=== PATIENT | female | born 1945 | race African-American/Black ===

== ENCOUNTER 2021-08-30 05:40 | Inpatient (IN) | payer MEDICARE ==
[~2021-08-30] VITALS: Ht 157.5 cm; Wt 79.6 kg
[2021-08-30] MEDS ORDERED: FLUO20CA22 PO (06:17)
[2021-08-30] MEDS ORDERED: TRAZ-118 PO (06:17)
[2021-08-30] MEDS ORDERED: CRESTOR40 MG PO (06:17)
[2021-08-30] MEDS ORDERED: FERR142T13 PO (06:17)
[2021-08-30] MEDS ORDERED: ACYC-12 PO (06:17)
[2021-08-30] MEDS ORDERED: TORS20TA2 PO (06:17)
[2021-08-30] MEDS ORDERED: CARV25TA2 PO (06:17)
[2021-08-30] MEDS ORDERED: CLOP75TA PO (06:17)
[2021-08-30] MEDS ORDERED: CETI10TA74 PO (06:17)
[2021-08-30] MEDS ORDERED: CHOL100013 PO (06:17)
[2021-08-30] MEDS ORDERED: CYAN50009 PO (06:17)
[2021-08-30] MEDS ORDERED: DICY10CA3 PO (06:17)
[2021-08-30] MEDS ORDERED: HYDR-2869 PO (06:21)
[2021-08-30] MEDS ORDERED: ISOS30TA68 PO (06:21)
[2021-08-30] MEDS ORDERED: INSU100C4 SQ (06:57)
[2021-08-30] MEDS ORDERED: INSU100V13 SQ (06:57)
[2021-08-30 07:00] VITALS: BP 92/55
--- NOTE | 2021-08-30 07:18 | PDOC1 ---
History and Physical Date of Admission Date of Admission DATE: 08/30/21 TIME: 07:17 Identification/Chief Complaint Chief Complaint Syncope Source Source: Patient History of Present Illness History of Present Illness Ms Arreaga is a 76-year-old female with a past medical history of CAD s/p CABG, systolic CHF EF 25% s/p AICD implantation, CKDIV, uterine Ca in remission, DM2, CHINEUD on CPAP, and recent diagnosis of multiple myeloma in the last year on Velcade through [facility] who presents to the emergency department at [facility] in [place], [place] with a chief complaint of syncope. States that she was having a bowel movement when this happened and her daughter witnessed her lose consciousness, did not strike her head. Denies any recent travel, traumas, illnesses, fevers, chest pain, shortness of breath, abdominal pain, nausea, vomiting, dysuria, hematuria, blood in the stool or diarrhea. Denies any known ill contacts. Denies alcohol or drug use. She was seen in the ED on 08/29/2021 after an episode where she passed out in the kitchen and awoke on the floor next to her sink. She got up later in the day went to the restroom and passed on the toilet after urinating. She was seen in the ED and had negative CT head neck and was discharged home with self-care. No history of seizures no loss of bowel or bladder function. She does follow at [facility] in [facility] and sees Dr. Vivas for her congestive heart failure and takes carvedilol 25 mg twice daily Imdur 30 mg daily hydralazine 50 mg 3 times daily and torsemide 40 mg daily as well as metolazone. She has had no discharges of her AICD that she knows of She was diagnosed with multiple myeloma in the last year and has been on Velcade infusions. Additionally she was diagnosed with worsening CKD and referred to nephrology for presumptive CKD stage IV. WBC 8, Hb 9.2, platelets 164, NA 138, K3.5, CL 100, HCO3 30, BUN 94, CR 3.2, glucose 294, calcium 8.8, phosphorus 3.8, magnesium 1.8, bilirubin 0.5, AST 20, ALT 27, alkaline phosphatase 90, high-sensitivity troponin is 34, NT proBNP is 2191, albumin 3.3, rapid COVID-19 negative, urinalysis with small blood otherwise bland, INR 1.1, PTT 23, D-dimer 1.89. EKG sinus rate 89 bpm QTC 476 otherwise normal axis and intervals. Transferred to [facility] for further evaluation. Past Medical History Cardiovascular: CAD, CHF, HTN, Hyperlipidemia CENTRAL NERVOUS SYSTEM: TIA Heme/Onc: Other (Multiple myeloma) Renal/: Chronic renal insuff Endocrine: Diabetes Past Surgical History Past Surgical History: Pacemaker (AICD), CABG Family History Family History: Diabetes, Hypertension Social History Smoke: Quit ALCOHOL: none Drugs: None Current Medications Current Medications Active Scripts Active Reported Novolog (Insulin Aspart) 100 Unit/1 Ml Cartridge 100 Unit SQ TID Levemir (Insulin Detemir) 100 Unit/1 Ml Vial 25 Unit SQ HS Isosorbide Mononitrate Er (Isosorbide Mononitrate) 30 Mg Tab.er.24h 1 Tab PO DAILY Hydralazine Hcl 50 Mg Tablet 1 Tab PO TID Clopidogrel (Clopidogrel Bisulfate) 75 Mg Tablet 1 Tab PO DAILY Torsemide 20 Mg Tablet 2 Tab PO DAILY Dicyclomine Hcl 10 Mg Capsule 1 Cap PO DAILY Vitamin B12 (Cyanocobalamin (Vitamin B-12)) 5,000 Mcg Tab.rapdis 1,000 Mcg PO DAILY Trazodone Hcl 50 Mg Tablet 50 Mg PO HS Vitamin D3 (Cholecalciferol (Vitamin D3)) 25 Mcg Capsule 25 Mcg PO DAILY Zyrtec (Cetirizine Hcl) 10 Mg Tablet 1 Tab PO DAILY Slow Fe (Ferrous Sulfate) 142 Mg Tablet.er 65 Mg PO DAILY Crestor (Rosuvastatin Calcium) 40 Mg Tablet 0.5 Tab PO DAILY Carvedilol 25 Mg Tablet 25 Mg PO BIDWMEALS Acyclovir 400 Mg Tablet 1 Tab PO BID Fluoxetine Hcl 20 Mg Capsule 1 Cap PO DAILY Allergies Allergies: Coded Allergies: Sulfa (Sulfonamide Antibiotics) (Verified Allergy, Unknown, 08/30/21) ROS General: YES: Fatigue, Malaise; No: Chills, Night Sweats, Appetite, Other PSYCHOLOGICAL ROS: No: Anxiety, Behavioral Disorder, Concentration difficultie, Decreased libido, Depression, Disorientation, Hallucinations, Hostility, Irritablity, Memory difficulties, Mood Swings, Obsessive thoughts, Physical abuse, Sexual abuse, Sleep disturbances, Suicidal ideation, Other Eyes: No Blurry vision, No Decreased vision, No Double vision, No Dry eyes, No Excessive tearing, No Eye Pain, No Itchy Eyes, No Loss of vision, No Photophobia, No Scotomata, No Uses contacts, No Uses glasses, No Other HEENT: No: Heacaches, Visual Changes, Hearing change, Nasal congestion, Nasal discharge, Oral lesions, Sinus pain, Sore Throat, Epistaxis, Sneezing, Snoring, Tinnitus, Vertigo, Vocal changes, Other ALLERGY AND IMMUNOLOGY: No: Hives, Insect Bite Sensitivity, Itchy/Watery Eyes, Nasal Congestion, Post Nasal Drip, Seasonal Allergies, Other Hematological and Lymphatic: No: Bleeding Problems, Blood Clots, Blood Transfusions, Brusing, Night Sweats, Pallor, Swollen Lymph Nodes, Other ENDOCRINE: No: Breast Changes, Galactorrhea, Hair Pattern Changes, Hot Flashes, Malaise/lethargy, Mood Swings, Palpitations, Polydipsia/polyuria, Skin Changes, Temperature Intolerance, Unexpected Weight Changes, Other Breast: No New/Changing Breast Lumps, No Nipple changes, No Nipple discharge, No Other Respiratory: No: Cough, Hemoptysis, Orthopnea, Pleuritic Pain, Shortness of breath, SOB with excertion, Sputum Changes, Stridor, Tachypnea, Wheezing, Other Cardiovascular: No Chest Pain, No Palpitations, No Orthopnea, No Paroxysmal Noc. Dyspnea, No Edema, No Lt Headedness, No Other Gastrointestinal: No Nausea, No Vomiting, No Abdominal Pain, No Diarrhea, No Constipation, No Melena, No Hematochezia, No Other Genitourinary: No Dysuria, No Frequency, No Incontinence, No Hematuria, No Retention, No Discharge, No Urgency, No Pain, No Flank Pain, No Other, No , No , No , No , No , No , No Musculoskeletal: Yes Gait Disturbance; No Joint Pain, No Joint Stiffness, No Joint Swelling, No Muscle Pain, No Muscular Weakness, No Pain In:, No Swelling In:, No Other Neurological: No Behavorial Changes, No Bowel/Bladder ControlChng, No Confusion, No Dizziness, No Gait Disturbance, No Headaches, No Impaired Coord/balance, No Memory Loss, No Numbness/Tingling, No Seizures, No Speech Problems, No Tremors, No Visual Changes, No Weakness, No Other Skin: No Dry Skin, No Eczema, No Hair Changes, No Lumps, No Mole Changes, No Mottling, No Nail Changes, No Pruritus, No Rash, No Skin Lesion Changes, No Other, No Acne Physical Exam General: Alert, Oriented X3, Cooperative, mild distress HEENT: Atraumatic, PERRLA, EOMI, Mucous membr. moist/pink Lungs: Clear to auscultation, Normal air movement Heart: S1S2, RRR, no thrills, no rubs, no gallops, no murmurs Abdomen: Normal bowel sounds, Soft, No tenderness, No hepatosplenomegaly, No masses Rectal Exam: not examined Extremities: No clubbing, No cyanosis, No edema, Normal pulses, No tenderness/swelling Skin: No rashes, No breakdown, No significant lesion Neuro: Normal gait, Normal speech, Strength at 5/5 X4 ext, Normal tone, Sensation intact, Cranial nerves 3-12 NL, Reflexes 2+ Psych/Mental Status: Mental status NL, Mood NL Vitals Vitals Vital Signs Date Time Temp Pulse Resp B/P (MAP) Pulse Ox O2 Delivery O2 Flow Rate FiO2 08/30/21 05:00 Room Air Images Images 08/29/21: CT CHEST WO CONTRAST Thyroid gland and thoracic inlet: Thyroid gland is normal. Heart and great vessels: Heart is mildly enlarged. There are surgical changes of CABG. Ute coronary artery calcifications. There is a defibrillator terminating in the right ventricle. A right chest wall port tip terminates at the superior cavoatrial junction. The thoracic aorta is normal in caliber. There is mild calcified moderate calcified aortic atherosclerosis with probable narrowing of the proximal left subclavian artery. The main pulmonary artery is enlarged measuring 4.4 cm consistent with pulmonary arterial hypertension. Mediastinum and ori: No lymphadenopathy. There are small mediastinal lymph nodes, nonspecific. Small hiatal hernia. Lungs and pleura: There is a 1 cm nodular opacity in the lateral left lower lobe (image 66, series 2). There are a few additional scattered 2 to 3 mm pulmonary nodules. Mild airway wall thickening. No pleural effusion or pneumothorax. Chest wall and axillae: No axillary lymphadenopathy. Upper abdomen: There is a 2.1 cm benign fat-containing left adrenal nodule. Bilateral adrenal calcifications are likely sequela of remote adrenal hemorrhages. There is severe right renal atrophy. Bones: Mild superior endplate deformities of T2 and T3, likely old or degen erative. No definite acute fracture. IMPRESSION: 1. Cardiomegaly. Surgical changes of CABG. Moderate calcified atherosclerosis. 2. Enlarged main pulmonary artery consistent with pulmonary arterial hypertension. 3. 1 cm nodular opacity in the lateral left lower lobe. Recommend follow-up CT in 3 months to ensure resolution. 4. No acute fracture. Mild chronic appearing superior endplate deformities of T2 and T3. 5. Severe right renal atrophy. 08/29/21: CT HEAD AND CERVICAL SPINE WO CT HEAD AND C-SPINE WO History: Syncope. Fall posterior head and midline neck pain. Comparison: 05/14/2021 Technique: Noncontrast CT of the head and cervical spine. Findings: CT HEAD: There is no evidence for intracranial mass or hemorrhage. There is no hydrocephalus or midline shift. No abnormal extra-axial fluid collections are present. No evidence of acute territorial infarction. Mild volume loss. Minimal left greater than right maxillary sinus nuchal periosteal thickening. The skull and scalp are within normal limits. CT CERVICAL SPINE: There is no evidence for fracture in the cervical spine. Alignment is normal. Mild cervical spondylosis. No destructive osseous lesions are seen. Carotid and vertebral artery atherosclerotic calcifications. Limited evaluation of the soft tissues of the neck and of the upper chest is unremarkable. Impression: 1. No acute intracranial findings. 2. No acute osseous abnormality in the cervical spine. VTE Prophylaxis Ordered VTE Prophylaxis Devices: Yes VTE Pharmacological Prophylaxi: Yes Assessment/Plan Assessment/Plan Syncope - multifactorial. Likely vasovagal. Will check device, consult cardiology. Carotid dopplers, check VQ scan. Orthostatics CAD s/p CABG - cont plavix Chronic systolic CHF EF 25% s/p AICD implantation - will monitor BP, cont meds CKD IV - will order records to confirm where her renal function is. Nephrology consulted. will give gently fluids for likely orthostasis Uterine Ca in remission DM2 - sliding scale basal bolus CHINEDU on CPAP - can bring in home device Multiple myeloma in the last year on Velcade through [facility] Severe pulmonary HTN - likely multifactorial, CHF, possibly primary pulmonary and possibly related to MM, noted per previous echo. Will avoid overdiuresis Anemia - likely of chronic renal insufficiency FEN - Cardiac diet PPX - heparin FULL CODE Dispo - inpatient Justifications for Admission Other Justification GUDELIA EMERSON MD Aug 30, 2021 07:18
[2021-08-30] MEDS ORDERED: traMADol 50 MG TABLET PO PRN (07:30)
[2021-08-30] MEDS ORDERED: ACETAMINOPHEN 325 MG TABLET. PO PRN (07:30)
[2021-08-30] MEDS ORDERED: ONDANSETRON PF 4 MG/2 ML VIAL. IVP PRN (07:30)
--- NOTE | 2021-08-30 08:15 | RAD ---
BILATERAL DUPLEX CAROTID SONOGRAPHY History: Syncope, concern for carotid occlusive vs vertebrobasilar insuffiency Technique: Duplex sonography of the cervical portion of both carotid arteries was performed. Real-sabrina e grayscale, color flow Doppler, and Doppler spectral waveform analysis is performed. Findings: Right side: Peak systolic flow velocity of the CCA is 76 cm/sec. Peak systolic flow velocity of the ICA is 70 cm/sec. The ICA/CCA ratio is 0.92. Peak end diastolic flow velocity of the ICA is 16 cm/sec. The peak systolic velocity of the ECA is 156 cm/sec. There is heterogeneous plaque in the common carotid artery. Left side: Peak systolic flow velocity of the CCA is 87 cm/sec. Peak systolic flow velocity of the ICA is 119 cm/sec. The ICA/CCA ratio is 1.2. Peak end diastolic flow velocity of the ICA is 43 cm/sec. Peak systolic flow velocity of the ECA is 104 cm/sec. There is heterogeneous plaque in the common carotid artery. Vertebral arteries: Bilateral vertebral arteries demonstrate antegrade flow. IMPRESSION: No hemodynamically significant internal carotid artery stenosis is identified. PQRS Compliance Statement - Stenosis calculations for CT, MR and conventional angiography are based u dwight measurement of the distal ICA diameter in accordance with the NASCET methodology. Stenosis calcu lations for carotid ultrasound studies are derived from validated velocity criteria which are known t o correlate with the NASCET methodology. Electronically signed by: Louis Messer MD (08/30/2021 8:12 AM) [facility]
[2021-08-30] MEDS: FLUoxetine HCL 20 MG CAPSULE PO SCH (09:01)
[2021-08-30] MEDS: DOCUSATE SODIUM 100 MG CAPSULE. PO SCH ×2 (09:01→20:39)
[2021-08-30] MEDS: CYANOCOBALAMIN (VITAMIN B-12) 1,000 MCG TABLET. PO SCH (09:01)
[2021-08-30] MEDS: CLOPIDOGREL BISULFATE 75 MG TABLET PO SCH (09:01)
[2021-08-30] MEDS: CETIRIZINE HCL 10 MG TABLET. PO SCH (09:01)
[2021-08-30] MEDS: CHOLECALCIFEROL (VITAMIN D3) 1,000 UNIT TABLET PO SCH (09:01)
[2021-08-30 09:08] LABS: ALBUMIN/GLOBULIN RATIO 0.9 (1.0-1.7); CALCIUM 8.7 mg/dL (8.5-10.1); CREATININE 2.9 mg/dL (0.6-1.0); GFR 19.2; POTASSIUM 3.9 mmol/L (3.5-5.1); TOTAL BILIRUBIN 0.4 mg/dL (0.2-1.0); TOTAL PROTEIN 6.3 g/dL (6.4-8.2)
[2021-08-30] MEDS: HEPARIN for SUB-Q USE 5,000 UNIT/ML VIAL. SQ SCH ×3 (09:11→22:05)
[2021-08-30 11:00] VITALS: BP 91/54
[2021-08-30] MEDS ORDERED: IV DEXTROSE 5% 250 ML BAG. IV PRN (11:45)
[2021-08-30] MEDS ORDERED: DEXTROSE 50% 25 GM / 50ML DISP.SYRIN. IV PRN (11:45)
--- NOTE | 2021-08-30 11:54 | PDOC2 ---
CONSULT Date of Consult Date of Consult DATE: 08/30/21 TIME: 11:51 Reason for Consult Reason for Consult: MAYELA Identification/Chief Complaint Chief Complaint States feeling better Source Source: Chart review, Patient History of Present Illness Reason for Visit: patient is a 76 yo AAF presented to [facility] with c/o Syncope - she had 3 episodes . Went to [facility] ER earlier was sent home . She went back again and transferred to [facility]. Denies any CP , No SOB. Denies any Cough/Fever or Chills. Denies any Dysuria /Frequency or Urgency Reports Hx of UTI in the past , none recently . She has a Dx of MM - reports getting Chemo thru [facility] . She was recently seen by Nephrology at [facility] (Doent recall name) - states she was Dx with CKD stage 3 or 4 not sure and her Cr had gone up to 4. She states she was told that she is not close to dialysis yet . Records from [facility] are pending Currently denies any complaints, sitting up in bed eating Lunch. Denies any dizziness or Light headedness. Denies LE edema . Per her Home med list she is on Torsemide and PREMA-I .(another list shows metolzone) Past Medical History Past Medical History HTN, Multiple Myeloma, DM HyperLipidemia CAD, CHF,, Cardiomyopathy, carotid artery disease COPD (CHINEDU) CVA, TIA Anemia Renal/: Chronic renal insuff Endocrine: Diabetes Past Surgical History Past Surgical History AICD (right carotid endarterectomy, CABG Family History Family History Hypertension Social History Social History Smoke: Quit ALCOHOL: none Drugs: None Lives: with Family Current Medications Current Medications Current Medications Acetaminophen (Tylenol) 650 mg PRN Q6HRS PRN PO MILD PAIN / TEMP > 100.3'F; Start 08/30/21 at 07:30 Ondansetron HCl (Zofran) 4 mg PRN Q4HRS PRN IVP NAUSEA/VOMITING; Start 08/30/21 at 07:30 Tramadol HCl (Ultram) 50 mg PRN Q6HRS PRN PO MODERATE-SEVERE PAIN; Start 08/30/21 at 07:30 Psyllium Hydrophilic Mucilloid (Metamucil Fiber Packet) 1 pkt QHS PO ; Start 08/30/21 at 21:00 Heparin Sodium (Porcine) (Heparin Sodium) 5,000 unit Q8HRS SQ Last administered on 08/30/21at 09:11; Start 08/30/21 at 07:30 Cetirizine HCl (ZyrTEC) 10 mg DAILY PO Last administered on 08/30/21at 09:01; Start 08/30/21 at 09:00 Clopidogrel Bisulfate (Plavix) 75 mg DAILY PO Last administered on 08/30/21at 09:01; Start 08/30/21 at 09:00 Fluoxetine HCl (PROzac) 20 mg DAILY PO Last administered on 08/30/21at 09:01; Start 08/30/21 at 09:00 Hydralazine HCl (Apresoline) 50 mg TID PO ; Start 08/30/21 at 09:00 Isosorbide Mononitrate (Imdur) 30 mg DAILY PO ; Start 08/30/21 at 09:00 Trazodone HCl (Desyrel) 50 mg HS PO ; Start 08/30/21 at 21:00 Carvedilol (Coreg) 25 mg BIDWMEALS PO ; Start 08/30/21 at 08:00 Vitamin D (Vitamin D3) 1,000 unit DAILY PO Last administered on 08/30/21at 09:01; Start 08/30/21 at 09:00 Cyanocobalamin (Vitamin B-12) 1,000 mcg DAILY PO Last administered on 08/30/21at 09:01; Start 08/30/21 at 09:00 Atorvastatin Calcium (Lipitor) 80 mg QHS PO ; Start 08/30/21 at 21:00 Docusate Sodium (Colace) 100 mg BID PO Last administered on 08/30/21at 09:01; Start 08/30/21 at 09:00 Insulin Human Lispro (HumaLOG) 0-9 UNITS TIDWMEALS SQ ; Start 08/30/21 at 12:00 Dextrose (Dextrose 50%-Water Syringe) 12.5 gm PRN Q15MIN PRN IV SEE COMMENTS; Start 08/30/21 at 11:45 Dextrose (Iv Dextrose 5%) 250 ml PRN Q15MIN PRN IV SEE COMMENTS; Start 08/30/21 at 11:45 Active Scripts Active Reported Novolog (Insulin Aspart) 100 Unit/1 Ml Cartridge 100 Unit SQ TID Levemir (Insulin Detemir) 100 Unit/1 Ml Vial 25 Unit SQ HS Isosorbide Mononitrate Er (Isosorbide Mononitrate) 30 Mg Tab.er.24h 1 Tab PO DAILY Hydralazine Hcl 50 Mg Tablet 1 Tab PO TID Clopidogrel (Clopidogrel Bisulfate) 75 Mg Tablet 1 Tab PO DAILY Torsemide 20 Mg Tablet 2 Tab PO DAILY Dicyclomine Hcl 10 Mg Capsule 1 Cap PO DAILY Vitamin B12 (Cyanocobalamin (Vitamin B-12)) 5,000 Mcg Tab.rapdis 1,000 Mcg PO DAILY Trazodone Hcl 50 Mg Tablet 50 Mg PO HS Vitamin D3 (Cholecalciferol (Vitamin D3)) 25 Mcg Capsule 25 Mcg PO DAILY Zyrtec (Cetirizine Hcl) 10 Mg Tablet 1 Tab PO DAILY Slow Fe (Ferrous Sulfate) 142 Mg Tablet.er 65 Mg PO DAILY Crestor (Rosuvastatin Calcium) 40 Mg Tablet 0.5 Tab PO DAILY Carvedilol 25 Mg Tablet 25 Mg PO BIDWMEALS Acyclovir 400 Mg Tablet 1 Tab PO BID Fluoxetine Hcl 20 Mg Capsule 1 Cap PO DAILY Allergies Allergies: Coded Allergies: Sulfa (Sulfonamide Antibiotics) (Verified Allergy, Unknown, 08/30/21) ROS Review of System As per HPI, rest of the ROS is negative Physical Exam Physical Exam General NAD HEEN OM moist Neck Supple Lungs CTA, Non labored CV S1S2 Abd soFT, nt, bs + Ext No LE edema, No Cyanosis Neuro Grossly Normal Psych Coopertaive No Young , No CVA or SP tenderness Vital Signs Vital Signs Date Time Temp Pulse Resp B/P (MAP) Pulse Ox O2 Delivery O2 Flow Rate FiO2 08/30/21 08:00 Room Air 08/30/21 07:00 98.3 64 18 92/55 (67) 93 98.3 Assessment & Plan MAYELA - baseline unknown; per patient report CKD 3 or 4. Patient reports Creat was up to 4 . MAYELA 2/2 Dehydration/Vasomotor; getting diuretics, Hypotensive . UA unremarkable, Creat stable 3.1->2.9 Hold Diuretics and PREMA-I , Maintain Hydration , Avoid Nephrotoxins , strict I/O . daily standing weight CKD stage 3 B/4- awaiting records from [facility]. Pt reports started seeing [employer] [facility] recently Hypotension BP low. Hx of HTN . Recommned holding antihypertensives Hx of HTN Home meds Coreg, Hydralazine, Torsemide ,Recommned Hold DM - Primary managing Multiple Myeloma - On Chemotherapy per patient Labs Labs Laboratory Tests Test 08/30/21 07:57 08/30/21 08:25 Glucose (Fingerstick) 153 mg/dL (70-99) Sodium Level 143 mmol/L (136-145) Potassium Level 3.9 mmol/L (3.5-5.1) Chloride Level 102 mmol/L (98-107) Carbon Dioxide Level 31 mmol/L (21-32) Anion Gap 10 (6-14) Blood Urea Nitrogen 87 mg/dL (7-20) Creatinine 2.9 mg/dL (0.6-1.0) Estimated GFR (Cockcroft-Gault) 19.2 BUN/Creatinine Ratio 30 (6-20) Glucose Level 142 mg/dL (70-99) Calcium Level 8.7 mg/dL (8.5-10.1) Total Bilirubin 0.4 mg/dL (0.2-1.0) Aspartate Amino Transf (AST/SGOT) 18 U/L (15-37) Alanine Aminotransferase (ALT/SGPT) 27 U/L (14-59) Alkaline Phosphatase 90 U/L (46-116) Total Protein 6.3 g/dL (6.4-8.2) Albumin 3.0 g/dL (3.4-5.0) Albumin/Globulin Ratio 0.9 (1.0-1.7) Thyroid Stimulating Hormone (TSH) 0.633 uIU/mL (0.358-3.74) Laboratory Tests Test 08/30/21 07:57 08/30/21 08:25 Glucose (Fingerstick) 153 mg/dL (70-99) Sodium Level 143 mmol/L (136-145) Potassium Level 3.9 mmol/L (3.5-5.1) Chloride Level 102 mmol/L (98-107) Carbon Dioxide Level 31 mmol/L (21-32) Anion Gap 10 (6-14) Blood Urea Nitrogen 87 mg/dL (7-20) Creatinine 2.9 mg/dL (0.6-1.0) Estimated GFR (Cockcroft-Gault) 19.2 BUN/Creatinine Ratio 30 (6-20) Glucose Level 142 mg/dL (70-99) Calcium Level 8.7 mg/dL (8.5-10.1) Total Bilirubin 0.4 mg/dL (0.2-1.0) Aspartate Amino Transf (AST/SGOT) 18 U/L (15-37) Alanine Aminotransferase (ALT/SGPT) 27 U/L (14-59) Alkaline Phosphatase 90 U/L (46-116) Total Protein 6.3 g/dL (6.4-8.2) Albumin 3.0 g/dL (3.4-5.0) Albumin/Globulin Ratio 0.9 (1.0-1.7) Thyroid Stimulating Hormone (TSH) 0.633 uIU/mL (0.358-3.74) Review All relevant outside records, renal labs, imaging studies, telemetry/EKG's were reviewed. Images Images BILATERAL DUPLEX CAROTID SONOGRAPHY History: Syncope, concern for carotid occlusive vs vertebrobasilar insuffiency Technique: Duplex sonography of the cervical portion of both carotid arteries was performed. Real-time grayscale, color flow Doppler, and Doppler spectral waveform analysis is performed. Findings: Right side: Peak systolic flow velocity of the CCA is 76 cm/sec. Peak systolic flow velocity of the ICA is 70 cm/sec. The ICA/CCA ratio is 0.92. Peak end diastolic flow velocity of the ICA is 16 cm/sec. The peak systolic velocity of the ECA is 156 cm/sec. There is heterogeneous plaque in the common carotid artery. Left side: Peak systolic flow velocity of the CCA is 87 cm/sec. Peak systolic flow velocity of the ICA is 119 cm/sec. The ICA/CCA ratio is 1.2. Peak end diastolic flow velocity of the ICA is 43 cm/sec. Peak systolic flow velocity of the ECA is 104 cm/sec. There is heterogeneous plaque in the common carotid artery. Vertebral arteries: Bilateral vertebral arteries demonstrate antegrade flow. IMPRESSION: No hemodynamically significant internal carotid artery stenosis is identified. JOVANA WHITE MD Aug 30, 2021 11:54
[2021-08-30] MEDS: CARVEDILOL 12.5 MG TABLET. PO SCH ×2 (12:24→17:26)
[2021-08-30] MEDS: ISOSORBIDE MONONITRATE ER 30 MG TAB.ER.24H PO SCH (12:25)
[2021-08-30] MEDS: INSULIN LISPRO 300 UNITS/3 ML VIAL. SQ SCH ×2 (12:28→17:00)
--- NOTE | 2021-08-30 13:07 | PDOC2 ---
GRIFFIN VIDES [employer] 08/30/21 1307: CARDIAC CONSULT DATE OF CONSULT Date of Consult DATE: 08/30/21 TIME: 12:53 REASON FOR CONSULT Reason for Consult: syncope REFERRING PHYSICIAN Referring Physician: Dallin SOURCE Source: Chart review, Patient HISTORY OF PRESENT ILLNESS HISTORY OF PRESENT ILLNESS This is a pleasant 76 yo female admitted for complains of passing out. 3 x in the approximately 24 hours. First one while she was standing in the kitchen in front of the sink ,She turned around then the next thing was she was on the floor and urinated on herself. No symptoms of dizziness, palpoitations, chest p ain or SOA. No visual or auditory disturbances. The other following times she passed out was when she was trying to urinate while sitting on the toilet. Denies being very confused when she regained consciousness. Unclear duration of unconsciousness. No fever or chills, nor recent injuries or MVA. She drinks and eat [id number] as she described and takes her medications regularly. [place] follows with [facility] Vivas cardiology. Also she did not feel any sensation of defibrillation. PAST MEDICAL HISTORY Past Medical History Cardiovascular: CAD, CHF, HTN, hyperipidemia, Cardiomyopathy, carotid artery disease Pulmonary: COPD, Other (CHINEDU) CENTRAL NERVOUS SYSTEM: CVA, TIA Heme/Onc: Anemia NOS, MM Renal/: Chronic renal insuff Endocrine: Diabetes PAST SURGICAL HISTORY Past Surgical History AICD (right carotid endarterectomy, CABG FAMILY HISTORY Family History: Hypertension SOCIAL HISTORY Smoke: Quit ALCOHOL: none Drugs: None Lives: with Family CURRENT MEDICATIONS CURRENT MEDICATIONS Current Medications Medications (Trade) Dose Ordered Sig/Adin Route PRN Reason Start Time Stop Time Status Last Admin Dose Admin Heparin Sodium (Porcine) (Heparin Sodium) 5,000 unit Q8HRS SQ 08/30/21 07:30 08/30/21 09:11 Cetirizine HCl (ZyrTEC) 10 mg DAILY PO 08/30/21 09:00 08/30/21 09:01 Clopidogrel Bisulfate (Plavix) 75 mg DAILY PO 08/30/21 09:00 08/30/21 09:01 Fluoxetine HCl (PROzac) 20 mg DAILY PO 08/30/21 09:00 08/30/21 09:01 Vitamin D (Vitamin D3) 1,000 unit DAILY PO 08/30/21 09:00 08/30/21 09:01 Cyanocobalamin (Vitamin B-12) 1,000 mcg DAILY PO 08/30/21 09:00 08/30/21 09:01 Docusate Sodium (Colace) 100 mg BID PO 08/30/21 09:00 08/30/21 09:01 Insulin Human Lispro (HumaLOG) 0-9 UNITS TIDWMEALS SQ 08/30/21 12:00 08/30/21 12:28 ALLERGIES ALLERGIES: Coded Allergies: Sulfa (Sulfonamide Antibiotics) (Verified Allergy, Unknown, 08/30/21) ROS Review of System 14 point ROS evaluated with pertinent positives noted per HPI PHYSICAL EXAM General: Alert, Oriented X3, Cooperative, No acute distress HEENT: Atraumatic, Mucous membr. moist/pink Lungs: Clear to auscultation, Normal air movement Heart: Regular rate, Normal S1, Normal S2, Other (3/6 systolic murmur to LADARIUS border) Abdomen: Soft, No tenderness Extremities: No edema Skin: No breakdown, No significant lesion Neuro: Normal speech, Sensation intact Psych/Mental Status: Mental status NL, Mood NL MUSCULOSKELETAL: Osteoarthritic changes both hands VITALS/I&O VITALS/I&O: Vital Signs Date Time Temp Pulse Resp B/P (MAP) Pulse Ox O2 Delivery O2 Flow Rate FiO2 08/30/21 12:25 80 91/54 08/30/21 11:00 97.4 18 96 Room Air 97.4 LABS Lab: Laboratory Tests Test 08/30/21 07:57 08/30/21 08:25 08/30/21 12:01 Glucose (Fingerstick) 153 mg/dL (70-99) H 287 mg/dL (70-99) H Sodium Level 143 mmol/L (136-145) Potassium Level 3.9 mmol/L (3.5-5.1) Chloride Level 102 mmol/L (98-107) Carbon Dioxide Level 31 mmol/L (21-32) Anion Gap 10 (6-14) Blood Urea Nitrogen 87 mg/dL (7-20) H Creatinine 2.9 mg/dL (0.6-1.0) H Estimated GFR (Cockcroft-Gault) 19.2 BUN/Creatinine Ratio 30 (6-20) H Glucose Level 142 mg/dL (70-99) H Calcium Level 8.7 mg/dL (8.5-10.1) Total Bilirubin 0.4 mg/dL (0.2-1.0) Aspartate Amino Transferase (AST) 18 U/L (15-37) Alanine Aminotransferase (ALT) 27 U/L (14-59) Alkaline Phosphatase 90 U/L (46-116) Total Protein 6.3 g/dL (6.4-8.2) L Albumin 3.0 g/dL (3.4-5.0) L Albumin/Globulin Ratio 0.9 (1.0-1.7) L Thyroid Stimulating Hormone (TSH) 0.633 uIU/mL (0.358-3.74) Laboratory Tests 08/30/21 08:25 ECHOCARDIOGRAM ECHOCARDIOGRAM <Conclusion> The left ventricular systolic function is severely impaired. The ejection fraction is estimated at 25%. Tissue Doppler imaging reveals moderate left ventricular diastolic dysfunction. Pacer/ICD lead noted RA/RV. Mild to moderate mitral regurgitation. Mild to moderate tricuspid regurgitation with an estimated PAP of 77 mmHg. There is no evidence of significant pericardial effusion. DATE: 05/14/21 152 ASSESSMENT/PLAN ASSESSMENT/PLAN 1. Syncope; confirmed orthostasis. No arrhythmia so far 2. Chronic systolic CHF: compensated 3. CAD s/p remote CABG; follows with pantograph engraver, Dr. Vivas with [facility], clincally stable 4. Hypertension; low end 5. Hyperlipidemia; statin 6. Diabetes, II 7. CKD5? nephrology consulted 8. Anemia 9. H/o CVA 10. Hx of Multiple myeloma 11. Cardiomyopathy: recent EF at 25% 12. Severe pulmonary HTN 13. AICD in situ: unknown brand Recommendations Hpld BP meds and diuretics. She is compensated. Will start on midodrine. Cautyion with IVF. Interrogate device, to ascertain any contributing arrhythmia. Request old records from [facility] secondary prevention Supportive care TOYIN PALACIOS MD 08/31/21 1229: CARDIAC CONSULT ASSESSMENT/PLAN ASSESSMENT/PLAN Late entry for 08/30/21 Pt. seen and examined. Agree with above RN [facility] note. Spoke to her OSH pantograph engraver. Will cut coreg and hydral. Await ICD interrogation Discussed with GRIFFIN Molina APRN Aug 30, 2021 13:07 TOYIN PALACIOS MD Aug 31, 2021 12:29
[2021-08-30 15:00] VITALS: BP 97/56
[2021-08-30] MEDS: MIDODRINE 2.5 MG TABLET PO SCH ×2 (15:04→20:00)
--- NOTE | 2021-08-30 16:39 | NUR ---
SW following. Discussed with RN, pt from home, room air, cardiac diet. Cardiology and Nephrology following. PT/OT ordered. Pt had Chemo last . SW will continue to follow.
[2021-08-30 19:22] VITALS: BP 93/55
[2021-08-30] MEDS: PSYLLIUM HUSK (SUGAR FREE) 1 PKT PACKET PO SCH (20:39)
[2021-08-30] MEDS: traZODone 50 MG TABLET. PO SCH (20:39)
[2021-08-30] MEDS: ATORVASTATIN CALCIUM 40 MG TABLET. PO SCH (20:39)
[2021-08-30 23:32] VITALS: BP 118/55
[2021-08-31] VITALS (9 sets, daily range): BP systolic 74–109; BP diastolic 46–61
[2021-08-31] MEDS: HEPARIN for SUB-Q USE 5,000 UNIT/ML VIAL. SQ SCH ×3 (06:19→20:55)
[2021-08-31] MEDS: MIDODRINE 2.5 MG TABLET PO SCH (06:20)
[2021-08-31] MEDS: INSULIN LISPRO 300 UNITS/3 ML VIAL. SQ SCH ×3 (08:00→17:00)
[2021-08-31] MEDS: CARVEDILOL 12.5 MG TABLET. PO SCH ×2 (08:00→18:15)
[2021-08-31] MEDS: FLUoxetine HCL 20 MG CAPSULE PO SCH (08:55)
[2021-08-31] MEDS: DOCUSATE SODIUM 100 MG CAPSULE. PO SCH ×2 (08:55→20:58)
[2021-08-31] MEDS: ISOSORBIDE MONONITRATE ER 30 MG TAB.ER.24H PO SCH (08:55)
[2021-08-31] MEDS: CETIRIZINE HCL 10 MG TABLET. PO SCH (08:56)
[2021-08-31] MEDS: CYANOCOBALAMIN (VITAMIN B-12) 1,000 MCG TABLET. PO SCH (08:56)
[2021-08-31] MEDS: CLOPIDOGREL BISULFATE 75 MG TABLET PO SCH (08:56)
[2021-08-31] MEDS: CHOLECALCIFEROL (VITAMIN D3) 1,000 UNIT TABLET PO SCH (09:03)
[2021-08-31 09:05] LABS: ALBUMIN 2.9 g/dL (3.4-5.0); CALCIUM 8.5 mg/dL (8.5-10.1); CREATININE 2.7 mg/dL (0.6-1.0); GFR 20.8; PHOSPHORUS 3.2 mg/dL (2.6-4.7); POTASSIUM 3.8 mmol/L (3.5-5.1)
--- NOTE | 2021-08-31 11:00 | PDOC ---
[employer] PROGRESS NOTE Date of Service DOS: DATE: 08/31/21 TIME: 10:57 Chief Complaint Chief Complaint Syncope - multifactorial. Likely vasovagal. Will check device, consult cardiology. Carotid dopplers negative, check VQ scan. Orthostatics positive, started on midodrine CAD s/p CABG - cont plavix Chronic systolic CHF EF 25% s/p AICD implantation - will monitor BP, cont meds CKD IV - will order records to confirm where her renal function is. Nephrology consulted. will give gently fluids for likely orthostasis Uterine Ca in remission DM2 - sliding scale basal bolus CHINEDU on CPAP - can bring in home device Multiple myeloma in the last year on Velcade through [employer] Severe pulmonary HTN - likely multifactorial, CHF, possibly primary pulmonary and possibly related to MM, noted per previous echo. Will avoid overdiuresis Anemia - likely of chronic renal insufficiency FEN - Cardiac diet PPX - heparin FULL CODE Dispo - inpatient History of Present Illness History of Present Illness Ms Arreaga is a 76-year-old female with a past medical history of CAD s/p CABG, systolic CHF EF 25% s/p AICD implantation, CKDIV, uterine Ca in remission, DM2, CHINEDU on CPAP, and recent diagnosis of multiple myeloma in the last year on Velcade through [facility] who presents to the emergency department at [facility] in [place], [place] with a chief complaint of syncope. States that she was having a bowel movement when this happened and her daughter witnessed her lose consciousness, did not strike her head. Denies any recent travel, traumas, illnesses, fevers, chest pain, shortness of breath, abdominal pain, nausea, vomiting, dysuria, hematuria, blood in the stool or diarrhea. Denies any known ill contacts. Denies alcohol or drug use. She was seen in the ED on 08/29/2021 after an episode where she passed out in the kitchen and awoke on the floor next to her sink. She got up later in the day went to the restroom and passed on the toilet after urinating. She was seen in the ED and had negative CT head neck and was discharged home with self-care. No history of seizures no loss of bowel or bladder function. She does follow at [facility] in [facility] and sees Dr. Vivas for her congestive heart failure and takes carvedilol 25 mg twice daily Imdur 30 mg daily hydralazine 50 mg 3 times daily and torsemide 40 mg daily as well as metolazone. She has had no discharges of her AICD that she knows of She was diagnosed with multiple myeloma in the last year and has been on Velcade infusions. Additionally she was diagnosed with worsening CKD and referred to nephrology for presumptive CKD stage IV. WBC 8, Hb 9.2, platelets 164, NA 138, K3.5, CL 100, HCO3 30, BUN 94, CR 3.2, glucose 294, calcium 8.8, phosphorus 3.8, magnesium 1.8, bilirubin 0.5, AST 20, ALT 27, alkaline phosphatase 90, high-sensitivity troponin is 34, NT proBNP is 2191, albumin 3.3, rapid COVID-19 negative, urinalysis with small blood otherwise bland, INR 1.1, PTT 23, D-dimer 1.89. EKG sinus rate 89 bpm QTC 476 otherwise normal axis and intervals. Transferred to [facility] for further evaluation. 08/31: Positive orthostatics initially. Started on midodrine. CR 2.7, BUN 82. She feels better but has been up out of bed yet today. Awaiting [place] [facility] device interrogation to rule out VT as cause. Negative carotid Dopplers. Vitals/I&O Vitals/I&O: Vital Signs Date Time Temp Pulse Resp B/P (MAP) Pulse Ox O2 Delivery O2 Flow Rate FiO2 08/31/21 10:53 98.6 95 18 91/46 (61) 93 Room Air 98.6 I & O 08/30/21 08/30/21 08/31/21 15:00 23:00 07:00 Intake Total 240 ml 200 ml Balance 240 ml 200 ml Physical Exam General: Alert, Oriented X3, Cooperative, mild distress Heart: Regular rate, Normal S1, Normal S2, Other (3/6 systolic murmur to LADARIUS border) Abdomen: Normal bowel sounds, Soft, No tenderness, No hepatosplenomegaly, No masses Extremities: No clubbing, No cyanosis, No edema, Normal pulses, No tenderness/swelling Skin: No rashes, No breakdown, No significant lesion Labs Labs: Laboratory Tests Test 08/30/21 12:01 08/30/21 17:11 08/30/21 19:39 08/31/21 07:31 Glucose (Fingerstick) 287 mg/dL (70-99) 123 mg/dL (70-99) 197 mg/dL (70-99) 146 mg/dL (70-99) Test 08/31/21 08:20 Sodium Level 145 mmol/L (136-145) Potassium Level 3.8 mmol/L (3.5-5.1) Chloride Level 104 mmol/L (98-107) Carbon Dioxide Level 32 mmol/L (21-32) Anion Gap 9 (6-14) Blood Urea Nitrogen 82 mg/dL (7-20) Creatinine 2.7 mg/dL (0.6-1.0) Estimated GFR (Cockcroft-Gault) 20.8 Glucose Level 143 mg/dL (70-99) Calcium Level 8.5 mg/dL (8.5-10.1) Phosphorus Level 3.2 mg/dL (2.6-4.7) Albumin 2.9 g/dL (3.4-5.0) Comment Review of Relevant I have reviewed the following items jaylan (where applicable) has been applied. Medications: Current Medications Medications (Trade) Dose Ordered Sig/Adin Route PRN Reason Start Time Stop Time Status Last Admin Dose Admin Psyllium Hydrophilic Mucilloid (Metamucil Fiber Packet) 1 pkt QHS PO 08/30/21 21:00 08/30/21 20:39 Trazodone HCl (Desyrel) 50 mg HS PO 08/30/21 21:00 08/30/21 20:39 Atorvastatin Calcium (Lipitor) 80 mg QHS PO 08/30/21 21:00 08/30/21 20:39 Insulin Human Lispro (HumaLOG) 0-9 UNITS TIDWMEALS SQ 08/30/21 12:00 08/30/21 12:28 Midodrine (Proamatine) 2.5 mg BID76 PO 08/30/21 14:00 08/30/21 15:04 Justifications for Admission Syncope Indications Is patient dehydrated?: Yes Justification for admission: There is concern that patient may be severely dehydrated accounting for the syncope. Patient needs inpatient level of care for further evaluation and management. Other Justification GUDELIA EMERSON MD Aug 31, 2021 11:00
[2021-08-31] MEDS: hydrALAZINE 25 MG TABLET PO SCH ×2 (14:00→20:57)
--- NOTE | 2021-08-31 14:20 | PDOC ---
PROGRESS NOTES Date of Service DATE: 08/31/21 TIME: 14:18 Subjective Subjective IN FOLLOW UP OF CKD 4 IN SETTING OF MULTIPLE MYELOMA Objective Objective Vital Signs Date Time Temp Pulse Resp B/P (MAP) Pulse Ox O2 Delivery O2 Flow Rate FiO2 08/31/21 11:09 84 90/51 (64) 08/31/21 10:53 98.6 18 93 Room Air 98.6 Intake and Output 08/31/21 07:00 Intake Total 440 ml Balance 440 ml Intake Oral 440 ml # Voids 5 # Bowel Movements 1 Physical Exam Heart: Regular rate, Normal S1, Normal S2, No murmurs, Gallops Extremities: No clubbing, No cyanosis, No edema, Normal pulses, No tenderness/swelling General: Alert, Oriented X3, Cooperative, No acute distress Lungs: Clear to auscultation, Normal air movement Psych/Mental Status: Mental status NL, Mood NL Diagnosis RENAL FAILURE: Chronic (CKD stage IV) Plan Plan of Care HER RENAL FUNCTION IS IMPROVING. LIKELY CKD4 AT BASELINE. CONT TO TREND LAB. CO NT FLUID BALANCE Comment Review of Relevant I have reviewed the following items jaylan (where applicable) has been applied. Labs Laboratory Tests Test 08/30/21 07:57 08/30/21 08:25 08/30/21 12:01 08/30/21 17:11 Glucose (Fingerstick) 153 mg/dL (70-99) 287 mg/dL (70-99) 123 mg/dL (70-99) Sodium Level 143 mmol/L (136-145) Potassium Level 3.9 mmol/L (3.5-5.1) Chloride Level 102 mmol/L (98-107) Carbon Dioxide Level 31 mmol/L (21-32) Anion Gap 10 (6-14) Blood Urea Nitrogen 87 mg/dL (7-20) Creatinine 2.9 mg/dL (0.6-1.0) Estimated GFR (Cockcroft-Gault) 19.2 BUN/Creatinine Ratio 30 (6-20) Glucose Level 142 mg/dL (70-99) Calcium Level 8.7 mg/dL (8.5-10.1) Total Bilirubin 0.4 mg/dL (0.2-1.0) Aspartate Amino Transf (AST/SGOT) 18 U/L (15-37) Alanine Aminotransferase (ALT/SGPT) 27 U/L (14-59) Alkaline Phosphatase 90 U/L (46-116) Total Protein 6.3 g/dL (6.4-8.2) Albumin 3.0 g/dL (3.4-5.0) Albumin/Globulin Ratio 0.9 (1.0-1.7) Thyroid Stimulating Hormone (TSH) 0.633 uIU/mL (0.358-3.74) Test 08/30/21 19:39 08/31/21 07:31 08/31/21 08:20 08/31/21 11:53 Glucose (Fingerstick) 197 mg/dL (70-99) 146 mg/dL (70-99) 270 mg/dL (70-99) Sodium Level 145 mmol/L (136-145) Potassium Level 3.8 mmol/L (3.5-5.1) Chloride Level 104 mmol/L (98-107) Carbon Dioxide Level 32 mmol/L (21-32) Anion Gap 9 (6-14) Blood Urea Nitrogen 82 mg/dL (7-20) Creatinine 2.7 mg/dL (0.6-1.0) Estimated GFR (Cockcroft-Gault) 20.8 Glucose Level 143 mg/dL (70-99) Calcium Level 8.5 mg/dL (8.5-10.1) Phosphorus Level 3.2 mg/dL (2.6-4.7) Albumin 2.9 g/dL (3.4-5.0) Laboratory Tests Test 08/30/21 17:11 08/30/21 19:39 08/31/21 07:31 08/31/21 08:20 Glucose (Fingerstick) 123 mg/dL (70-99) 197 mg/dL (70-99) 146 mg/dL (70-99) Sodium Level 145 mmol/L (136-145) Potassium Level 3.8 mmol/L (3.5-5.1) Chloride Level 104 mmol/L (98-107) Carbon Dioxide Level 32 mmol/L (21-32) Anion Gap 9 (6-14) Blood Urea Nitrogen 82 mg/dL (7-20) Creatinine 2.7 mg/dL (0.6-1.0) Estimated GFR (Cockcroft-Gault) 20.8 Glucose Level 143 mg/dL (70-99) Calcium Level 8.5 mg/dL (8.5-10.1) Phosphorus Level 3.2 mg/dL (2.6-4.7) Albumin 2.9 g/dL (3.4-5.0) Test 08/31/21 11:53 Glucose (Fingerstick) 270 mg/dL (70-99) Medications Current Medications Acetaminophen (Tylenol) 650 mg PRN Q6HRS PRN PO MILD PAIN / TEMP > 100.3'F; Start 08/30/21 at 07:30 Ondansetron HCl (Zofran) 4 mg PRN Q4HRS PRN IVP NAUSEA/VOMITING; Start 08/30/21 at 07:30 Tramadol HCl (Ultram) 50 mg PRN Q6HRS PRN PO MODERATE-SEVERE PAIN; Start 08/30/21 at 07:30 Psyllium Hydrophilic Mucilloid (Metamucil Fiber Packet) 1 pkt QHS PO Last administered on 08/30/21at 20:39; Start 08/30/21 at 21:00 Heparin Sodium (Porcine) (Heparin Sodium) 5,000 unit Q8HRS SQ Last administered on 08/31/21at 06:19; Start 08/30/21 at 07:30 Cetirizine HCl (ZyrTEC) 10 mg DAILY PO Last administered on 08/31/21at 08:56; Start 08/30/21 at 09:00 Clopidogrel Bisulfate (Plavix) 75 mg DAILY PO Last administered on 08/31/21at 08:56; Start 08/30/21 at 09:00 Fluoxetine HCl (PROzac) 20 mg DAILY PO Last administered on 08/31/21at 08:55; Start 08/30/21 at 09:00 Hydralazine HCl (Apresoline) 50 mg TID PO ; Start 08/30/21 at 09:00; Stop 08/31/21 at 10:43; Status DC Isosorbide Mononitrate (Imdur) 30 mg DAILY PO Last administered on 08/31/21at 08:55; Start 08/30/21 at 09:00 Trazodone HCl (Desyrel) 50 mg HS PO Last administered on 08/30/21at 20:39; Start 08/30/21 at 21:00 Carvedilol (Coreg) 25 mg BIDWMEALS PO ; Start 08/30/21 at 08:00; Stop 08/31/21 at 10:43; Status DC Vitamin D (Vitamin D3) 1,000 unit DAILY PO Last administered on 08/31/21at 09:03; Start 08/30/21 at 09:00 Cyanocobalamin (Vitamin B-12) 1,000 mcg DAILY PO Last administered on 08/31/21at 08:56; Start 08/30/21 at 09:00 Atorvastatin Calcium (Lipitor) 80 mg QHS PO Last administered on 08/30/21at 20:39; Start 08/30/21 at 21:00 Docusate Sodium (Colace) 100 mg BID PO Last administered on 08/31/21at 08:55; Start 08/30/21 at 09:00 Insulin Human Lispro (HumaLOG) 0-9 UNITS TIDWMEALS SQ Last administered on 08/31/21at 12:34; Start 08/30/21 at 12:00 Dextrose (Dextrose 50%-Water Syringe) 12.5 gm PRN Q15MIN PRN IV SEE COMMENTS; Start 08/30/21 at 11:45 Dextrose (Iv Dextrose 5%) 250 ml PRN Q15MIN PRN IV SEE COMMENTS; Start 08/30/21 at 11:45 Midodrine (Proamatine) 2.5 mg BID76 PO Last administered on 08/30/21at 15:04; Start 08/30/21 at 14:00 Carvedilol (Coreg) 12.5 mg BIDWMEALS PO ; Start 08/31/21 at 17:00 Hydralazine HCl (Apresoline) 25 mg TID PO ; Start 08/31/21 at 14:00 Active Scripts Active Reported Novolog (Insulin Aspart) 100 Unit/1 Ml Cartridge 100 Unit SQ TID Levemir (Insulin Detemir) 100 Unit/1 Ml Vial 25 Unit SQ HS Isosorbide Mononitrate Er (Isosorbide Mononitrate) 30 Mg Tab.er.24h 1 Tab PO DAILY Hydralazine Hcl 50 Mg Tablet 1 Tab PO TID Clopidogrel (Clopidogrel Bisulfate) 75 Mg Tablet 1 Tab PO DAILY Torsemide 20 Mg Tablet 2 Tab PO DAILY Dicyclomine Hcl 10 Mg Capsule 1 Cap PO DAILY Vitamin B12 (Cyanocobalamin (Vitamin B-12)) 5,000 Mcg Tab.rapdis 1,000 Mcg PO DAILY Trazodone Hcl 50 Mg Tablet 50 Mg PO HS Vitamin D3 (Cholecalciferol (Vitamin D3)) 25 Mcg Capsule 25 Mcg PO DAILY Zyrtec (Cetirizine Hcl) 10 Mg Tablet 1 Tab PO DAILY Slow Fe (Ferrous Sulfate) 142 Mg Tablet.er 65 Mg PO DAILY Crestor (Rosuvastatin Calcium) 40 Mg Tablet 0.5 Tab PO DAILY Carvedilol 25 Mg Tablet 25 Mg PO BIDWMEALS Acyclovir 400 Mg Tablet 1 Tab PO BID Fluoxetine Hcl 20 Mg Capsule 1 Cap PO DAILY Vitals/I & O Vital Sign - Last 24 Hours 08/30/21 08/30/21 08/30/21 08/30/21 15:00 15:04 15:04 17:26 Temp 98.6 98.6 Pulse 84 84 84 84 Resp 14 B/P (MAP) 97/56 (70) 97/56 97/56 97/56 Pulse Ox 95 O2 Delivery Room Air 08/30/21 08/30/21 08/30/21 08/30/21 19:22 20:00 20:00 20:35 Temp 98.5 98.5 Pulse 87 87 87 Resp 18 B/P (MAP) 93/55 (68) 118/55 93/55 Pulse Ox 96 O2 Delivery Room Air Room Air 08/30/21 08/31/21 08/31/21 08/31/21 23:32 03:23 06:20 07:00 Temp 99.0 98.9 98.9 99.0 98.9 98.9 Pulse 90 87 84 76 Resp 18 18 18 B/P (MAP) 118/55 (76) 109/61 (77) 115/59 93/50 (64) Pulse Ox 96 96 97 O2 Delivery Room Air Room Air Room Air 08/31/21 08/31/21 08/31/21 08/31/21 08:00 08:54 08:55 10:53 Temp 98.6 98.6 Pulse 76 76 76 95 Resp 18 B/P (MAP) 93/50 93/50 93/50 91/46 (61) Pulse Ox 93 O2 Delivery Room Air 08/31/21 08/31/21 08/31/21 11:00 11:02 11:09 Pulse 85 93 84 B/P (MAP) 100/57 (71) 74/47 (56) 90/51 (64) Intake and Output 08/30/21 08/30/21 08/31/21 15:00 23:00 07:00 Intake Total 240 ml 200 ml Balance 240 ml 200 ml Justifications for Admission Syncope Indications Is patient dehydrated?: Yes Justification for admission: There is concern that patient may be severely dehydrated accounting for the syncope. Patient needs inpatient level of care for further evaluation and management. Other Justification BETHANY HOOPER MD Aug 31, 2021 14:20
--- NOTE | 2021-08-31 14:24 | PDOC ---
PROGRESS NOTES Date of Service: DATE: 08/31/21 TIME: 14:23 Subjective Subjective Feeling better today. No new complaints. Objective Objective Vital Signs Date Time Temp Pulse Resp B/P (MAP) Pulse Ox O2 Delivery O2 Flow Rate FiO2 08/31/21 11:09 84 90/51 (64) 08/31/21 10:53 98.6 18 93 Room Air 98.6 Intake and Output 08/31/21 07:00 Intake Total 440 ml Balance 440 ml Intake Oral 440 ml # Voids 5 # Bowel Movements 1 Physical Exam Abdomen: Normal bowel sounds, Soft, No tenderness, No hepatosplenomegaly, No masses Heart: Regular rate, Normal S1, Normal S2, No murmurs, Gallops Extremities: No clubbing, No cyanosis, No edema, Normal pulses, No tenderness/swelling General: Alert, Oriented X3, Cooperative, No acute distress HEENT: Atraumatic, PERRLA, EOMI, Mucous membr. moist/pink Lungs: Clear to auscultation, Normal air movement Neuro: Normal gait, Normal speech, Normal tone, Sensation intact, Reflexes 2+ Psych/Mental Status: Mental status NL, Mood NL Skin: No rashes, No breakdown, No significant lesion Diagnosis RENAL FAILURE: Chronic (CKD stage IV) Assessment Assessment 1. Syncope; confirmed orthostasis. No arrhythmia so far 2. Chronic systolic CHF: compensated 3. CAD s/p remote CABG; follows with cant hooker, Dr. Vivas with [email or web address] [place], clincally stable 4. Hypertension; low end 5. Hyperlipidemia; statin 6. Diabetes, II 7. CKD5? nephrology consulted 8. Anemia 9. H/o CVA 10. Hx of Multiple myeloma 11. Cardiomyopathy: recent EF at 25% 12. Severe pulmonary HTN 13. AICD in situ: unknown brand Recommendations Continue midodrine. Device interrogation pending. Request old records from [facility] Resume secondary prevention Supportive care Comment Review of Relevant I have reviewed the following items jaylan (where applicable) has been applied. Labs Laboratory Tests Test 08/30/21 17:11 08/30/21 19:39 08/31/21 07:31 08/31/21 08:20 Glucose (Fingerstick) 123 mg/dL (70-99) 197 mg/dL (70-99) 146 mg/dL (70-99) Sodium Level 145 mmol/L (136-145) Potassium Level 3.8 mmol/L (3.5-5.1) Chloride Level 104 mmol/L (98-107) Carbon Dioxide Level 32 mmol/L (21-32) Anion Gap 9 (6-14) Blood Urea Nitrogen 82 mg/dL (7-20) Creatinine 2.7 mg/dL (0.6-1.0) Estimated GFR (Cockcroft-Gault) 20.8 Glucose Level 143 mg/dL (70-99) Calcium Level 8.5 mg/dL (8.5-10.1) Phosphorus Level 3.2 mg/dL (2.6-4.7) Albumin 2.9 g/dL (3.4-5.0) Test 08/31/21 11:53 Glucose (Fingerstick) 270 mg/dL (70-99) Medications Current Medications Atorvastatin Calcium (Lipitor) 80 mg QHS PO Last administered on 08/30/21at 20:39; Start 08/30/21 at 21:00 Carvedilol (Coreg) 12.5 mg BIDWMEALS PO ; Start 08/31/21 at 17:00 Hydralazine HCl (Apresoline) 25 mg TID PO ; Start 08/31/21 at 14:00 Psyllium Hydrophilic Mucilloid (Metamucil Fiber Packet) 1 pkt QHS PO Last administered on 08/30/21at 20:39; Start 08/30/21 at 21:00 Trazodone HCl (Desyrel) 50 mg HS PO Last administered on 08/30/21at 20:39; Start 08/30/21 at 21:00 Vitals/I & O Vital Sign - Last 24 Hours 08/30/21 08/30/21 08/30/21 08/30/21 15:00 15:04 15:04 17:26 Temp 98.6 98.6 Pulse 84 84 84 84 Resp 14 B/P (MAP) 97/56 (70) 97/56 97/56 97/56 Pulse Ox 95 O2 Delivery Room Air 08/30/21 08/30/21 08/30/21 08/30/21 19:22 20:00 20:00 20:35 Temp 98.5 98.5 Pulse 87 87 87 Resp 18 B/P (MAP) 93/55 (68) 118/55 93/55 Pulse Ox 96 O2 Delivery Room Air Room Air 08/30/21 08/31/21 08/31/21 08/31/21 23:32 03:23 06:20 07:00 Temp 99.0 98.9 98.9 99.0 98.9 98.9 Pulse 90 87 84 76 Resp 18 18 18 B/P (MAP) 118/55 (76) 109/61 (77) 115/59 93/50 (64) Pulse Ox 96 96 97 O2 Delivery Room Air Room Air Room Air 08/31/21 08/31/21 08/31/21 08/31/21 08:00 08:54 08:55 10:53 Temp 98.6 98.6 Pulse 76 76 76 95 Resp 18 B/P (MAP) 93/50 93/50 93/50 91/46 (61) Pulse Ox 93 O2 Delivery Room Air 08/31/21 08/31/21 08/31/21 11:00 11:02 11:09 Pulse 85 93 84 B/P (MAP) 100/57 (71) 74/47 (56) 90/51 (64) Intake and Output 08/30/21 08/30/21 08/31/21 15:00 23:00 07:00 Intake Total 240 ml 200 ml Balance 240 ml 200 ml STACY CASTRO MD Aug 31, 2021 14:24
[2021-08-31] MEDS: MIDODRINE 5 MG TABLET PO SCH (18:10)
[2021-08-31] MEDS: traZODone 50 MG TABLET. PO SCH (20:56)
[2021-08-31] MEDS: ATORVASTATIN CALCIUM 40 MG TABLET. PO SCH (20:57)
[2021-08-31] MEDS: PSYLLIUM HUSK (SUGAR FREE) 1 PKT PACKET PO SCH (20:58)
[2021-09-01 02:43] VITALS: BP 112/55
[2021-09-01] MEDS: HEPARIN for SUB-Q USE 5,000 UNIT/ML VIAL. SQ SCH ×3 (05:56→20:54)
[2021-09-01] MEDS: MIDODRINE 5 MG TABLET PO SCH ×3 (05:57→17:16)
[2021-09-01 07:00] VITALS: BP 134/51
[2021-09-01 07:11] LABS: BASO % 0 % (0-3); EOS # 0.8 x10^3/uL (0.0-0.7); EOS % 11 % (0-3); HEMATOCRIT 27.2 % (36.0-47.0); HEMOGLOBIN 8.6 g/dL (12.0-15.5); LYMPH # 1.5 x10^3/uL (1.0-4.8); LYMPH % 21 % (24-48); MEAN CORPUSCULAR HEMOGLOBIN 30 pg (25-35); MEAN CORPUSCULAR HGB CONC 32 g/dL (31-37); MEAN CORPUSCULAR VOLUME 93 fL (79-100); MONO # 1.1 x10^3/uL (0.0-1.1); MONO % 16 % (0-9); NEUT # 3.8 x10^3/uL (1.8-7.7); NEUT % 52 % (31-73); PLATELET COUNT 165 x10^3/uL (140-400); RED BLOOD COUNT 2.92 x10^6/uL (3.50-5.40); RED CELL DISTRIBUTION WIDTH 17.3 % (11.5-14.5); WHITE BLOOD COUNT 7.2 x10^3/uL (4.0-11.0)
[2021-09-01 07:24] LABS: ALBUMIN 2.9 g/dL (3.4-5.0); CALCIUM 8.4 mg/dL (8.5-10.1); CREATININE 2.6 mg/dL (0.6-1.0); GFR 21.8; PHOSPHORUS 3.6 mg/dL (2.6-4.7); POTASSIUM 3.9 mmol/L (3.5-5.1)
[2021-09-01] MEDS: INSULIN LISPRO 300 UNITS/3 ML VIAL. SQ SCH ×3 (08:00→17:00)
[2021-09-01] MEDS: FLUoxetine HCL 20 MG CAPSULE PO SCH ×2 (08:56→09:00)
[2021-09-01] MEDS: CLOPIDOGREL BISULFATE 75 MG TABLET PO SCH (08:56)
[2021-09-01] MEDS: CHOLECALCIFEROL (VITAMIN D3) 1,000 UNIT TABLET PO SCH (08:56)
[2021-09-01] MEDS: DOCUSATE SODIUM 100 MG CAPSULE. PO SCH ×2 (08:56→20:55)
[2021-09-01] MEDS: ISOSORBIDE MONONITRATE ER 30 MG TAB.ER.24H PO SCH (08:57)
[2021-09-01] MEDS: CYANOCOBALAMIN (VITAMIN B-12) 1,000 MCG TABLET. PO SCH (08:57)
[2021-09-01] MEDS: CETIRIZINE HCL 10 MG TABLET. PO SCH (08:58)
[2021-09-01] MEDS: CARVEDILOL 12.5 MG TABLET. PO SCH ×2 (08:58→17:00)
[2021-09-01] MEDS: hydrALAZINE 25 MG TABLET PO SCH ×3 (08:59→20:57)
[2021-09-01 11:00] VITALS: BP 92/44
--- NOTE | 2021-09-01 12:32 | PDOC ---
PROGRESS NOTES Date of Service: DATE: 09/01/21 TIME: 12:30 Subjective Subjective No new complaints Objective Objective Vital Signs Date Time Temp Pulse Resp B/P (MAP) Pulse Ox O2 Delivery O2 Flow Rate FiO2 09/01/21 12:21 92/44 09/01/21 08:59 89 09/01/21 08:00 Room Air 09/01/21 07:00 98.6 18 95 98.6 Intake and Output 09/01/21 07:00 Intake Total 400 ml Output Total 600 ml Balance -200 ml Intake Oral 400 ml Output Urine Total 600 ml # Voids 3 Physical Exam Abdomen: Normal bowel sounds, Soft, No tenderness, No hepatosplenomegaly, No masses Heart: Regular rate, Normal S1, Normal S2, No murmurs, Gallops Extremities: No clubbing, No cyanosis, No edema, Normal pulses, No tenderness/swelling General: Alert, Oriented X3, Cooperative, No acute distress HEENT: Atraumatic, PERRLA, EOMI, Mucous membr. moist/pink Lungs: Clear to auscultation, Normal air movement Neuro: Normal gait, Normal speech, Normal tone, Sensation intact, Reflexes 2+ Psych/Mental Status: Mental status NL, Mood NL Skin: No rashes, No breakdown, No significant lesion Diagnosis RENAL FAILURE: Chronic (CKD stage IV) Assessment Assessment 1. Syncope; secondary to orthostasis. Telemetry did not show any significant arrhythmias. Continue midodrine. 2. Chronic systolic CHF: compensated 3. CAD s/p remote CABG; follows with disease case manager rn, Dr. Vivas with [facility], clincally stable and chest pain-free. Continue current secondary prevention measures. 4. Hypertension; low end 5. Hyperlipidemia; statin 6. Diabetes, II: Treat per IM 7. CKD5? nephrology consulted 8. Anemia 9. H/o CVA 10. Hx of Multiple myeloma 11. Cardiomyopathy: recent EF at 25% 12. Severe pulmonary HTN 13. AICD in situ: unknown brand Comment Review of Relevant I have reviewed the following items jaylan (where applicable) has been applied. Labs Laboratory Tests Test 08/31/21 16:55 08/31/21 18:48 09/01/21 06:05 09/01/21 07:51 Glucose (Fingerstick) 82 mg/dL (70-99) 181 mg/dL (70-99) 119 mg/dL (70-99) White Blood Count 7.2 x10^3/uL (4.0-11.0) Red Blood Count 2.92 x10^6/uL (3.50-5.40) Hemoglobin 8.6 g/dL (12.0-15.5) Hematocrit 27.2 % (36.0-47.0) Mean Corpuscular Volume 93 fL (79-100) Mean Corpuscular Hemoglobin 30 pg (25-35) Mean Corpuscular Hemoglobin Concent 32 g/dL (31-37) Red Cell Distribution Width 17.3 % (11.5-14.5) Platelet Count 165 x10^3/uL (140-400) Neutrophils (%) (Auto) 52 % (31-73) Lymphocytes (%) (Auto) 21 % (24-48) Monocytes (%) (Auto) 16 % (0-9) Eosinophils (%) (Auto) 11 % (0-3) Basophils (%) (Auto) 0 % (0-3) Neutrophils # (Auto) 3.8 x10^3/uL (1.8-7.7) Lymphocytes # (Auto) 1.5 x10^3/uL (1.0-4.8) Monocytes # (Auto) 1.1 x10^3/uL (0.0-1.1) Eosinophils # (Auto) 0.8 x10^3/uL (0.0-0.7) Basophils # (Auto) 0.0 x10^3/uL (0.0-0.2) Sodium Level 145 mmol/L (136-145) Potassium Level 3.9 mmol/L (3.5-5.1) Chloride Level 103 mmol/L (98-107) Carbon Dioxide Level 33 mmol/L (21-32) Anion Gap 9 (6-14) Blood Urea Nitrogen 75 mg/dL (7-20) Creatinine 2.6 mg/dL (0.6-1.0) Estimated GFR (Cockcroft-Gault) 21.8 Glucose Level 99 mg/dL (70-99) Calcium Level 8.4 mg/dL (8.5-10.1) Phosphorus Level 3.6 mg/dL (2.6-4.7) Albumin 2.9 g/dL (3.4-5.0) Test 09/01/21 11:26 Glucose (Fingerstick) 161 mg/dL (70-99) Medications Current Medications Carvedilol (Coreg) 12.5 mg BIDWMEALS PO Last administered on 09/01/21at 08:58; Start 08/31/21 at 17:00 Hydralazine HCl (Apresoline) 25 mg TID PO Last administered on 09/01/21at 08:59; Start 08/31/21 at 14:00 Midodrine (Proamatine) 5 mg [id number] PO Last administered on 09/01/21at 12:21; Start 08/31/21 at 18:00 Vitals/I & O Vital Sign - Last 24 Hours 08/31/21 08/31/21 08/31/21 08/31/21 14:00 15:00 18:10 18:15 Temp 98.1 98.1 Pulse 87 87 87 87 Resp 18 B/P (MAP) 104/49 104/49 (67) 104/49 104/49 Pulse Ox 97 O2 Delivery Room Air 08/31/21 08/31/21 08/31/21 09/01/21 19:00 20:28 22:39 02:43 Temp 97.9 97.8 97.8 97.9 97.8 97.8 Pulse 87 88 85 Resp 17 17 18 B/P (MAP) 94/49 (64) 96/54 (68) 112/55 (74) Pulse Ox 94 95 96 O2 Delivery Room Air Room Air Room Air Room Air 09/01/21 09/01/21 09/01/21 09/01/21 05:57 07:00 08:00 08:57 Temp 98.6 98.6 Pulse 85 89 89 Resp 18 B/P (MAP) 112/55 134/51 (78) 134/51 Pulse Ox 95 O2 Delivery Room Air Room Air 09/01/21 09/01/21 09/01/21 08:58 08:59 12:21 Pulse 89 89 B/P (MAP) 134/51 134/51 92/44 Intake and Output 08/31/21 08/31/21 09/01/21 15:00 23:00 07:00 Intake Total 400 ml Output Total 200 ml 400 ml Balance 200 ml -400 ml STACY CASTRO MD Sep 01, 2021 12:32
--- NOTE | 2021-09-01 13:03 | PDOC ---
[facility] PROGRESS NOTE Date of Service DOS: DATE: 09/01/21 TIME: 11:51 Chief Complaint Chief Complaint Syncope - multifactorial. Likely vasovagal. Will check device, consult cardiology. Carotid dopplers negative, check VQ scan. Orthostatics positive, started on midodrine CAD s/p CABG - cont plavix Chronic systolic CHF EF 25% s/p AICD implantation - will monitor BP, cont meds CKD IV - will order records to confirm where her renal function is. Nephrology consulted. will give gently fluids for likely orthostasis Uterine Ca in remission DM2 - sliding scale basal bolus CHINEDU on CPAP - can bring in home device Multiple myeloma in the last year on Velcade through [employer] Severe pulmonary HTN - likely multifactorial, CHF, possibly primary pulmonary and possibly related to MM, noted per previous echo. Will avoid overdiuresis Anemia - likely of chronic renal insufficiency FEN - Cardiac diet PPX - heparin FULL CODE Dispo - inpatient History of Present Illness History of Present Illness Ms Arreaga is a 76-year-old female with a past medical history of CAD s/p CABG, systolic CHF EF 25% s/p AICD implantation, CKDIV, uterine Ca in remission, DM2, CHINEDU on CPAP, and recent diagnosis of multiple myeloma in the last year on Velcade through [employer] who presents to the emergency department at [facility] in [place], [place] with a chief complaint of syncope. States that she was having a bowel movement when this happened and her daughter witnessed her lose consciousness, did not strike her head. Denies any recent travel, traumas, illnesses, fevers, chest pain, shortness of breath, abdominal pain, nausea, vomiting, dysuria, hematuria, blood in the stool or diarrhea. Denies any known ill contacts. Denies alcohol or drug use. She was seen in the ED on 08/29/2021 after an episode where she passed out in the kitchen and awoke on the floor next to her sink. She got up later in the day went to the restroom and passed on the toilet after urinating. She was seen in the ED and had negative CT head neck and was discharged home with self-care. No history of seizures no loss of bowel or bladder function. She does follow at [facility] in [facility] and sees Dr. Vivas for her congestive heart failure and takes carvedilol 25 mg twice daily Imdur 30 mg daily hydralazine 50 mg 3 times daily and torsemide 40 mg daily as well as metolazone. She has had no discharges of her AICD that she knows of She was diagnosed with multiple myeloma in the last year and has been on Velcade infusions. Additionally she was diagnosed with worsening CKD and referred to nephrology for presumptive CKD stage IV. WBC 8, Hb 9.2, platelets 164, NA 138, K3.5, CL 100, HCO3 30, BUN 94, CR 3.2, glucose 294, calcium 8.8, phosphorus 3.8, magnesium 1.8, bilirubin 0.5, AST 20, ALT 27, alkaline phosphatase 90, high-sensitivity troponin is 34, NT proBNP is 2191, albumin 3.3, rapid COVID-19 negative, urinalysis with small blood otherwise bland, INR 1.1, PTT 23, D-dimer 1.89. EKG sinus rate 89 bpm QTC 476 otherwise normal axis and intervals. Transferred to [facility] for further evaluation. 08/31: Positive orthostatics initially. Started on midodrine. CR 2.7, BUN 82. She feels better but has been up out of bed yet today. Awaiting [place] device interrogation to rule out VT as cause. Negative carotid Dopplers. 09/01: BUN 75 creatinine 2.6 still minimally orthostatic today but able to take her cardiac medications in addition to midodrine 3 times daily. Feels symptomatically better. We will repeat therapy evaluation likely will need home health Vitals/I&O Vitals/I&O: Vital Signs Date Time Temp Pulse Resp B/P (MAP) Pulse Ox O2 Delivery O2 Flow Rate FiO2 09/01/21 08:59 89 134/51 09/01/21 08:00 Room Air 09/01/21 07:00 98.6 18 95 98.6 I & O 08/31/21 08/31/21 09/01/21 15:00 23:00 07:00 Intake Total 400 ml Output Total 200 ml 400 ml Balance 200 ml -400 ml Physical Exam General: Alert, Oriented X3, Cooperative, No acute distress Heart: Regular rate, Normal S1, Normal S2, No murmurs, Gallops Abdomen: Normal bowel sounds, Soft, No tenderness, No hepatosplenomegaly, No masses Extremities: No clubbing, No cyanosis, No edema, Normal pulses, No tenderness/swelling Skin: No rashes, No breakdown, No significant lesion Labs Labs: Laboratory Tests Test 08/31/21 11:53 08/31/21 16:55 08/31/21 18:48 09/01/21 06:05 Glucose (Fingerstick) 270 mg/dL (70-99) 82 mg/dL (70-99) 181 mg/dL (70-99) White Blood Count 7.2 x10^3/uL (4.0-11.0) Red Blood Count 2.92 x10^6/uL (3.50-5.40) Hemoglobin 8.6 g/dL (12.0-15.5) Hematocrit 27.2 % (36.0-47.0) Mean Corpuscular Volume 93 fL (79-100) Mean Corpuscular Hemoglobin 30 pg (25-35) Mean Corpuscular Hemoglobin Concent 32 g/dL (31-37) Red Cell Distribution Width 17.3 % (11.5-14.5) Platelet Count 165 x10^3/uL (140-400) Neutrophils (%) (Auto) 52 % (31-73) Lymphocytes (%) (Auto) 21 % (24-48) Monocytes (%) (Auto) 16 % (0-9) Eosinophils (%) (Auto) 11 % (0-3) Basophils (%) (Auto) 0 % (0-3) Neutrophils # (Auto) 3.8 x10^3/uL (1.8-7.7) Lymphocytes # (Auto) 1.5 x10^3/uL (1.0-4.8) Monocytes # (Auto) 1.1 x10^3/uL (0.0-1.1) Eosinophils # (Auto) 0.8 x10^3/uL (0.0-0.7) Basophils # (Auto) 0.0 x10^3/uL (0.0-0.2) Sodium Level 145 mmol/L (136-145) Potassium Level 3.9 mmol/L (3.5-5.1) Chloride Level 103 mmol/L (98-107) Carbon Dioxide Level 33 mmol/L (21-32) Anion Gap 9 (6-14) Blood Urea Nitrogen 75 mg/dL (7-20) Creatinine 2.6 mg/dL (0.6-1.0) Estimated GFR (Cockcroft-Gault) 21.8 Glucose Level 99 mg/dL (70-99) Calcium Level 8.4 mg/dL (8.5-10.1) Phosphorus Level 3.6 mg/dL (2.6-4.7) Albumin 2.9 g/dL (3.4-5.0) Test 09/01/21 07:51 09/01/21 11:26 Glucose (Fingerstick) 119 mg/dL (70-99) 161 mg/dL (70-99) Comment Review of Relevant I have reviewed the following items jaylan (where applicable) has been applied. Medications: Current Medications Medications (Trade) Dose Ordered Sig/Adin Route PRN Reason Start Time Stop Time Status Last Admin Dose Admin Carvedilol (Coreg) 12.5 mg BIDWMEALS PO 08/31/21 17:00 09/01/21 08:58 Hydralazine HCl (Apresoline) 25 mg TID PO 08/31/21 14:00 09/01/21 08:59 Midodrine (Proamatine) 5 mg [id number] PO 08/31/21 18:00 09/01/21 05:57 Justifications for Admission Syncope Indications Is patient dehydrated?: Yes Justification for admission: There is concern that patient may be severely dehydrated accounting for the syncope. Patient needs inpatient level of care for further evaluation and management. Other Justification GUDELIA EMERSON MD Sep 01, 2021 13:03
[2021-09-01] MEDS ORDERED: CARV25TA2 PO (13:05)
[2021-09-01] MEDS ORDERED: MIDO5TAB4 PO (13:07)
--- NOTE | 2021-09-01 13:08 | SNU/HH DC ---
DISCHARGE WITH HOME HEALTH DISCHARGE INFORMATION: Discharge Date: Sep 01, 2021 Final Diagnosis: Syncope Condition on Discharge: Stable CODE STATUS: Code Status: Full HOME HEALTH: Face to Face: I certify this patient is under my care and that I, or a nurse practitioner or physician's assistant therapy aide working with me, had a face to face encounter that meets the physician face to face encounter requirements with this patient on 09/01/21. Jail For: Assess & Educate Safety, Medication Management RN For Eval/Treatment: Yes Physical Therapy For: Evalulation/Treatment Pt Meets Homebound Status: Extreme weakness w/ amb., Limited distance walking POST DISCHARGE ORDERS: Activity Instructions for Disc: Resume previous activity Weight Bearing Status after Di: Full weight bearing DIET AFTER DISCHARGE: Cardiac CHECKS AFTER DISCHARGE: Checks after discharge: Check blood press - daily, Check your Temp as needed, Weigh Yourself Daily FOLLOW-UP: Additional Instructions: Follow-up with Dr. Vivas from cardiology at [facility] CERTIFICATION STATEMENT: Certification Statement: Certification Statement: Based on the above finding, I certify that this patient is confined to the home and needs intermittent care home care, physical therapy and/or speech therapy, or continues to need occupational therapy.~ This patient is under my care, and I have initiated the establishment of the plan of care.~ This patient will be followed by myself or a community physician who will periodically review the plan of care. Home Meds Active Scripts Midodrine Hcl (MIDODRINE HCL) 5 Mg Tablet, 5 MG PO BIDAC for Orthostasis for 30 Days, #90 TAB 3 Refills Prov:GUDELIA EMERSON MD 09/01/21 Carvedilol (CARVEDILOL) 25 Mg Tablet, 12.5 MG PO BIDWMEALS for CARDIAC for 30 Days, #30 TAB Prov:GUDELIA EMERSON MD 09/01/21 Reported Medications Insulin Aspart (NOVOLOG) 100 Unit/1 Ml Cartridge, 100 UNIT SQ TID for sliding scale, EACH 08/30/21 Insulin Detemir (LEVEMIR) 100 Unit/1 Ml Vial, 25 UNIT SQ HS for diabetes, EACH 08/30/21 Isosorbide Mononitrate (ISOSORBIDE MONONITRATE ER) 30 Mg Tab.er.24h, 1 TAB PO DAILY for blood pressure, #30 TAB 5 Refills 08/30/21 Hydralazine Hcl (HYDRALAZINE HCL) 50 Mg Tablet, 1 TAB PO TID for htn, #90 TAB 5 Refills 08/30/21 Clopidogrel Bisulfate (CLOPIDOGREL) 75 Mg Tablet, 1 TAB PO DAILY for thinner, #90 TAB 1 Refill 08/30/21 Dicyclomine Hcl (DICYCLOMINE HCL) 10 Mg Capsule, 1 CAP PO DAILY for , #90 CAP 11 Refills 08/30/21 Cyanocobalamin (Vitamin B-12) (Vitamin B12) 5,000 Mcg Tab.rapdis, 1000 MCG PO DAILY for vitamin, TAB 08/30/21 Trazodone Hcl (TRAZODONE HCL) 50 Mg Tablet, 50 MG PO HS for health, TAB 08/30/21 Cholecalciferol (Vitamin D3) (Vitamin D3) 25 Mcg Capsule, 25 MCG PO DAILY for supplement, CAP 08/30/21 Cetirizine Hcl (ZYRTEC) 10 Mg Tablet, 1 TAB PO DAILY for allergies, #30 TAB 2 Refills 08/30/21 Ferrous Sulfate (Slow Fe) 142 Mg Tablet.er, 65 MG PO DAILY for supplement, TAB.SR 08/30/21 Rosuvastatin Calcium (CRESTOR) 40 Mg Tablet, 0.5 TAB PO DAILY for cholesterol, #30 TAB 5 Refills 08/30/21 Acyclovir (ACYCLOVIR) 400 Mg Tablet, 1 TAB PO BID for antiviral, #60 TAB 3 Refills 08/30/21 Fluoxetine Hcl (FLUOXETINE HCL) 20 Mg Capsule, 1 CAP PO DAILY for depression, #90 CAP 1 Refill 08/30/21 GUDELIA EMERSON MD Sep 01, 2021 13:08
[2021-09-01 15:00] VITALS: BP 92/52
[2021-09-01 19:00] VITALS: BP 147/68
[2021-09-01] MEDS: traZODone 50 MG TABLET. PO SCH (20:54)
[2021-09-01] MEDS: PSYLLIUM HUSK (SUGAR FREE) 1 PKT PACKET PO SCH (20:55)
[2021-09-01] MEDS: ATORVASTATIN CALCIUM 40 MG TABLET. PO SCH (20:55)
[2021-09-01 22:40] VITALS: BP 102/44
[2021-09-02 03:05] VITALS: BP 106/48
[2021-09-02] MEDS: HEPARIN for SUB-Q USE 5,000 UNIT/ML VIAL. SQ SCH ×2 (05:52→13:35)
[2021-09-02] MEDS: MIDODRINE 5 MG TABLET PO SCH ×3 (05:53→18:00)
[2021-09-02 06:45] LABS: ALBUMIN 2.8 g/dL (3.4-5.0); CALCIUM 8.8 mg/dL (8.5-10.1); CREATININE 2.4 mg/dL (0.6-1.0); GFR 23.9; PHOSPHORUS 3.5 mg/dL (2.6-4.7); POTASSIUM 3.6 mmol/L (3.5-5.1)
[2021-09-02 07:30] VITALS: BP 108/46
[2021-09-02] MEDS: INSULIN LISPRO 300 UNITS/3 ML VIAL. SQ SCH ×3 (08:00→17:00)
[2021-09-02] MEDS: CARVEDILOL 12.5 MG TABLET. PO SCH (08:00)
[2021-09-02] MEDS: CLOPIDOGREL BISULFATE 75 MG TABLET PO SCH (08:37)
[2021-09-02] MEDS: CYANOCOBALAMIN (VITAMIN B-12) 1,000 MCG TABLET. PO SCH (08:37)
[2021-09-02] MEDS: DOCUSATE SODIUM 100 MG CAPSULE. PO SCH (08:37)
[2021-09-02] MEDS: FLUoxetine HCL 20 MG CAPSULE PO SCH (08:38)
[2021-09-02] MEDS: CHOLECALCIFEROL (VITAMIN D3) 1,000 UNIT TABLET PO SCH (08:38)
[2021-09-02] MEDS: CETIRIZINE HCL 10 MG TABLET. PO SCH (08:38)
[2021-09-02] MEDS: ISOSORBIDE MONONITRATE ER 30 MG TAB.ER.24H PO SCH (08:39)
[2021-09-02] MEDS: hydrALAZINE 25 MG TABLET PO SCH (08:40)
--- NOTE | 2021-09-02 10:13 | RAD ---
EXAM: Pulmonary ventilation-perfusion scan. HISTORY: Syncope. TECHNIQUE: Scintigraphic ventilation images of the chest were obtained during the inhalation of 24 mC i Xe-133 gas. Scintigraphic perfusion images of the chest were obtained following the administration of 5.5 mCi Tc-99m MAA. COMPARISON: CT dated 08/29/2021. FINDINGS: There is diffusely heterogeneous radiotracer activity throughout both lungs on perfusion im ages. This can be seen with chronic obstructive pulmonary disease and limits evaluation for pulmonary embolism. There is a prominent cardiac silhouette due to cardiomegaly. There is no significant trace r retention on ventilation images. IMPRESSION: Diffusely heterogeneous radiotracer activity throughout both lungs on perfusion images, a finding which can be seen with chronic obstructive pulmonary disease. There is limits evaluation for pulmonary embolism. Low to intermediate probability for pulmonary embolism. Electronically signed by: Sil Navas MD (09/02/2021 10:10 AM) [id number]
--- NOTE | 2021-09-02 10:17 | PDOC ---
DATE OF SERVICE DATE: 09/02/21 TIME: 10:06 SUBJECTIVE ROS States she is feeling the same. Denies any dizziness or lightheadedness No SOB. No N/V . Reports good UOP OBJECTIVE Vital Signs Vital Signs Date Time Temp Pulse Resp B/P (MAP) Pulse Ox O2 Delivery O2 Flow Rate FiO2 09/02/21 08:40 81 108/46 09/02/21 08:00 Room Air 09/02/21 07:30 97.9 18 94 97.9 09/01/21 19:00 2.0 I & 0 Intake and Output 09/02/21 07:00 Intake Total 300 ml Output Total 500 ml Balance -200 ml Intake Oral 300 ml Output Urine Total 500 ml PHYSICAL EXAM Physical Exam General NAD HEEN OM moist Neck Supple Lungs CTA, Non labored CV S1S2 Abd soFT, nt, bs + Ext No LE edema, No Cyanosis Neuro Grossly Normal Psych Coopertaive No Young , No CVA or SP tenderness DIAGNOSIS/ASSESSMENT Assessment & Plan MAYELA - baseline unknown; per patient report CKD 3 or 4. Patient reports Creat w as up to 4 . MAYELA 2/2 Dehydration/Vasomotor 2/2 diuretics, Hypotensive . UA unremarkable, Improving renal function Advised to Hold Diuretics and PREMA-I , Maintain Hydration , Avoid Nephrotoxins , strict I/O . daily standing weight CKD stage 3 B/4- awaiting records from [place] [facility] (Not in the chart yet) . Pt reports started seeing It Desktop Support Technician recently Hypotension BP low POA - Hx of HTN . Recommended to hold antihypertensives . Started on Midodrine by Cardiology due to Orthostasis Hx of HTN Home meds Coreg, Hydralazine, Torsemide ,Held DM - Primary managing Multiple Myeloma - On Chemotherapy per patient Cardiomyopathy: recent EF at 25% Severe pulmonary HTN AICD in situ COMMENT/RELEVANT DATA Meds Current Medications Medications (Trade) Dose Ordered Sig/Adin Start Time Stop Time Status Last Admin Dose Admin Acetaminophen (Tylenol) 650 mg PRN Q6HRS PRN 08/30/21 07:30 Atorvastatin Calcium (Lipitor) 80 mg QHS 08/30/21 21:00 09/01/21 20:55 80 MG Carvedilol (Coreg) 12.5 mg BIDWMEALS 08/31/21 17:00 09/01/21 08:58 12.5 MG Cetirizine HCl (ZyrTEC) 10 mg DAILY 08/30/21 09:00 09/02/21 08:38 10 MG Clopidogrel Bisulfate (Plavix) 75 mg DAILY 08/30/21 09:00 09/02/21 08:37 75 MG Cyanocobalamin (Vitamin B-12) 1,000 mcg DAILY 08/30/21 09:00 09/02/21 08:37 1,000 MCG Dextrose (Dextrose 50%-Water Syringe) 12.5 gm PRN Q15MIN PRN 08/30/21 11:45 Dextrose (Iv Dextrose 5%) 250 ml PRN Q15MIN PRN 08/30/21 11:45 Docusate Sodium (Colace) 100 mg BID 08/30/21 09:00 09/02/21 08:37 100 MG Fluoxetine HCl (PROzac) 20 mg DAILY 08/30/21 09:00 08/31/21 08:55 20 MG Heparin Sodium (Porcine) (Heparin Sodium) 5,000 unit Q8HRS 08/30/21 07:30 09/02/21 05:52 5,000 UNIT Hydralazine HCl (Apresoline) 25 mg TID 08/31/21 14:00 09/01/21 20:57 25 MG Insulin Human Lispro (HumaLOG) 0-9 UNITS TIDWMEALS 08/30/21 12:00 09/01/21 12:28 4 UNITS Isosorbide Mononitrate (Imdur) 30 mg DAILY 08/30/21 09:00 09/02/21 08:39 30 MG Midodrine (Proamatine) 5 mg [id number] 08/31/21 18:00 09/02/21 05:53 5 MG Ondansetron HCl (Zofran) 4 mg PRN Q4HRS PRN 08/30/21 07:30 Psyllium Hydrophilic Mucilloid (Metamucil Fiber Packet) 1 pkt QHS 08/30/21 21:00 08/30/21 20:39 1 PKT Tramadol HCl (Ultram) 50 mg PRN Q6HRS PRN 08/30/21 07:30 Trazodone HCl (Desyrel) 50 mg HS 08/30/21 21:00 09/01/21 20:54 50 MG Vitamin D (Vitamin D3) 1,000 unit DAILY 08/30/21 09:00 09/02/21 08:38 1,000 UNIT Lab Laboratory Tests Test 09/01/21 11:26 09/01/21 17:08 09/01/21 22:47 09/02/21 05:15 Glucose (Fingerstick) 161 mg/dL (70-99) 84 mg/dL (70-99) 165 mg/dL (70-99) Sodium Level 143 mmol/L (136-145) Potassium Level 3.6 mmol/L (3.5-5.1) Chloride Level 102 mmol/L (98-107) Carbon Dioxide Level 31 mmol/L (21-32) Anion Gap 10 (6-14) Blood Urea Nitrogen 65 mg/dL (7-20) Creatinine 2.4 mg/dL (0.6-1.0) Estimated GFR (Cockcroft-Gault) 23.9 Glucose Level 117 mg/dL (70-99) Calcium Level 8.8 mg/dL (8.5-10.1) Phosphorus Level 3.5 mg/dL (2.6-4.7) Albumin 2.8 g/dL (3.4-5.0) Test 09/02/21 07:53 Glucose (Fingerstick) 138 mg/dL (70-99) Results All relevant outside records, renal labs, imaging studies, telemetry/EKG's were reviewed. Justicifation of Admission Dx: Justifications for Admission: Justification of Admission Dx: N/A JOVANA WHITE MD Sep 02, 2021 10:17
--- NOTE | 2021-09-02 10:43 | PDOC ---
MELLISA SANDERS BAG MACHINE SET UP OPERATOR 09/02/21 1043: CARDIO Progress Notes Date and Time Date of Service 09/02/21 Time of Evaluation 1030 Subjective Subjective: No Chest Pain, No shortness of breath, No Palpitations, No Dizziness Vitals Vitals Vital Signs Date Time Temp Pulse Resp B/P (MAP) Pulse Ox O2 Delivery O2 Flow Rate FiO2 09/02/21 08:40 81 108/46 09/02/21 08:00 Room Air 09/02/21 07:30 97.9 18 94 97.9 09/01/21 19:00 2.0 Weight Weight [ ] Input and Output Intake and Output Intake and Output 09/02/21 07:00 Intake Total 300 ml Output Total 500 ml Balance -200 ml Intake Oral 300 ml Output Urine Total 500 ml Laboratory Labs Laboratory Tests Test 09/01/21 11:26 09/01/21 17:08 09/01/21 22:47 09/02/21 05:15 Glucose (Fingerstick) 161 mg/dL (70-99) 84 mg/dL (70-99) 165 mg/dL (70-99) Sodium Level 143 mmol/L (136-145) Potassium Level 3.6 mmol/L (3.5-5.1) Chloride Level 102 mmol/L (98-107) Carbon Dioxide Level 31 mmol/L (21-32) Anion Gap 10 (6-14) Blood Urea Nitrogen 65 mg/dL (7-20) Creatinine 2.4 mg/dL (0.6-1.0) Estimated GFR (Cockcroft-Gault) 23.9 Glucose Level 117 mg/dL (70-99) Calcium Level 8.8 mg/dL (8.5-10.1) Phosphorus Level 3.5 mg/dL (2.6-4.7) Albumin 2.8 g/dL (3.4-5.0) Test 09/02/21 07:53 Glucose (Fingerstick) 138 mg/dL (70-99) Physical Exam HEENT: Neck Supple W Full Motion Chest: Symmetric LUNGS: Clear to Auscultation Heart: S1S2, RRR Abdomen: Soft N/T Extremities: No Edema Neurology: alert, oriented, follow commands Assessment Assessment 1. Syncope; secondary to orthostasis. Telemetry did not show any significant arrhythmias. 2. Chronic systolic CHF: compensated 3. CAD s/p remote CABG; follows with assistant women's tennis coach, Dr. Vivas with [facility], clinically stable, CP free. 4. Hypertension; low end 5. Hyperlipidemia; statin 6. Diabetes, II: Treat per IM 7. CKD 8. Anemia 9. H/o CVA 10. Hx of Multiple myeloma 11. Cardiomyopathy: recent EF at 25% 12. Severe pulmonary HTN 13. AICD in situ: ([place] awaiting interrogation Recommendations Continue midodrine Decrease Coreg, and stop hydralazine as BP continues to be low end Secondary prevention Supportive care Follow up with primary assistant women's tennis coach upon discharge. Justicifation of Admission Dx: Justifications for Admission: Justification of Admission Dx: N/A TOYIN PALACIOS MD 09/02/212127: CARDIO Progress Notes Plan Plan The patient was seen and interviewed as well as examined at the bedside. The chart was reviewed. The case was discussed. Agree with the plan of care. MELLISA SANDERS APRN Sep 02, 2021 10:43 TOYIN PALACIOS MD Sep 02, 2021 21:28
[2021-09-02 11:00] VITALS: BP 147/78
[2021-09-02] MEDS ORDERED: CARV3.1210 PO (12:22)
--- NOTE | 2021-09-02 12:23 | SNU/HH DC ---
DISCHARGE WITH HOME HEALTH DISCHARGE INFORMATION: Discharge Date: Sep 01, 2021 Condition on Discharge: Stable CODE STATUS: Code Status: Full HOME HEALTH: Face to Face: I certify this patient is under my care and that I, or a nurse practitioner or braulio lopez's patient clerical assistant working with me, had a face to face encounter that meets the physician face to face encounter requirements with this patient on []. Long-Term For: Assess Cardiopulm Status, Assess & Educate Safety RN For Eval/Treatment: Yes Physical Therapy For: Evalulation/Treatment Occupational Therapy For: Evaluation/Treatment Pt Meets Homebound Status: Poor coordination w/ amb., Unsteady balance w/ amb,, Extreme weakness w/ amb. POST DISCHARGE ORDERS: Activity Instructions for Disc: Resume previous activity Weight Bearing Status after Di: Full weight bearing DIET AFTER DISCHARGE: Cardiac CHECKS AFTER DISCHARGE: Checks after discharge: Check blood press - daily, Check your Temp as needed, Weigh Yourself Daily CERTIFICATION STATEMENT: Certification Statement: Certification Statement: Based on the above finding, I certify that this patient is confined to the home and needs intermittent longterm care, physical therapy and/or speech therapy, or continues to need occupational therapy.~ This patient is under my care, and I have initiated the establishment of the plan of care.~ This patient will be followed by myself or a community physician who will periodically review the plan of care. Home Meds Active Scripts Carvedilol (CARVEDILOL ) 3.125 Mg Tablet, 3.125 MG PO BIDWMEALS for htn for 30 Days, #60 TAB Prov:GUDELIA GEORGE MD 09/02/21 Midodrine Hcl (MIDODRINE HCL) 5 Mg Tablet, 5 MG PO BIDAC for Orthostasis for 30 Days, #90 TAB 3 Refills Prov:GUDELIA EMERSON MD 09/01/21 Reported Medications Insulin Aspart (NOVOLOG) 100 Unit/1 Ml Cartridge, 100 UNIT SQ TID for sliding scale, EACH 08/30/21 Insulin Detemir (LEVEMIR) 100 Unit/1 Ml Vial, 25 UNIT SQ HS for diabetes, EACH 08/30/21 Isosorbide Mononitrate (ISOSORBIDE MONONITRATE ER) 30 Mg Tab.er.24h, 1 TAB PO DAILY for blood pressure, #30 TAB 5 Refills 08/30/21 Clopidogrel Bisulfate (CLOPIDOGREL) 75 Mg Tablet, 1 TAB PO DAILY for thinner, #90 TAB 1 Refill 08/30/21 Dicyclomine Hcl (DICYCLOMINE HCL) 10 Mg Capsule, 1 CAP PO DAILY for , #90 CAP 11 Refills 08/30/21 Cyanocobalamin (Vitamin B-12) (Vitamin B12) 5,000 Mcg Tab.rapdis, 1000 MCG PO DAILY for vitamin, TAB 08/30/21 Trazodone Hcl (TRAZODONE HCL) 50 Mg Tablet, 50 MG PO HS for health, TAB 08/30/21 Cholecalciferol (Vitamin D3) (Vitamin D3) 25 Mcg Capsule, 25 MCG PO DAILY for donahue pplement, CAP 08/30/21 Cetirizine Hcl (ZYRTEC) 10 Mg Tablet, 1 TAB PO DAILY for allergies, #30 TAB 2 Refills 08/30/21 Ferrous Sulfate (Slow Fe) 142 Mg Tablet.er, 65 MG PO DAILY for supplement, TAB.SR 08/30/21 Rosuvastatin Calcium (CRESTOR) 40 Mg Tablet, 0.5 TAB PO DAILY for cholesterol, #30 TAB 5 Refills 08/30/21 Acyclovir (ACYCLOVIR) 400 Mg Tablet, 1 TAB PO BID for antiviral, #60 TAB 3 Refills 08/30/21 Fluoxetine Hcl (FLUOXETINE HCL) 20 Mg Capsule, 1 CAP PO DAILY for depression, #90 CAP 1 Refill 08/30/21 Discontinued Reported Medications Hydralazine Hcl (HYDRALAZINE HCL) 50 Mg Tablet, 1 TAB PO TID for htn, #90 TAB 5 Refills 08/30/21 Discontinued Scripts Carvedilol (CARVEDILOL) 25 Mg Tablet, 12.5 MG PO BIDWMEALS for CARDIAC for 30 Days, #30 TAB Prov:GUDELIA EMERSON MD 09/01/21 GUDELIA GEORGE MD Sep 02, 2021 12:23
--- NOTE | 2021-09-02 12:28 | PDOC3 ---
[facility]-Discharge Summary Date of Admission: Date of Admission: Aug 30, 2021 Date of Discharge: Date of Discharge: Sep 02, 2021 Admission Diagnosis: Problems: (1) Syncope Consults: Consults: Nephro, Cardiology Hospital Course: Hospital Course: Chief Complaint Syncope - multifactorial. Likely vasovagal. Will check device, consult cardiology. Carotid dopplers negative, check VQ scan. Orthostatics positive, started on midodrine CAD s/p CABG - cont plavix Chronic systolic CHF EF 25% s/p AICD implantation - will monitor BP, cont meds CKD IV - will order records to confirm where her renal function is. Nephrology consulted. will give gently fluids for likely orthostasis Uterine Ca in remission DM2 - sliding scale basal bolus CHINEDU on CPAP - can bring in home device Multiple myeloma in the last year on Velcade through [facility] Severe pulmonary HTN - likely multifactorial, CHF, possibly primary pulmonary and possibly related to MM, noted per previous echo. Will avoid overdiuresis Anemia - likely of chronic renal insufficiency FEN - Cardiac diet PPX - heparin FULL CODE Dispo - inpatient History of Present Illness History of Present Illness Ms Arreaga is a 76-year-old female with a past medical history of CAD s/p CABG, systolic CHF EF 25% s/p AICD implantation, CKDIV, uterine Ca in remission, DM2, CHINEDU on CPAP, and recent diagnosis of multiple myeloma in the last year on Velcade through [facility] who presents to the emergency department at [facility] in [place], [place] with a chief complaint of syncope. States that she was having a bowel movement when this happened and her daughter witnessed her lose consciousness, did not strike her head. Denies any recent travel, traumas, illnesses, fevers, chest pain, shortness of breath, abdominal pain, nausea, vomiting, dysuria, hematuria, blood in the stool or diarrhea. Denies any known ill contacts. Denies alcohol or drug use. She was seen in the ED on 08/29/2021 after an episode where she passed out in the kitchen and awoke on the floor next to her sink. She got up later in the day went to the restroom and passed on the toilet after urinating. She was seen in the ED and had negative CT head neck and was discharged home with self-care. No history of seizures no loss of bowel or bladder function. She does follow at [facility] in [facility] and sees Dr. Vivas for her congestive heart failure and takes carvedilol 25 mg twice daily Imdur 30 mg daily hydralazine 50 mg 3 times daily and torsemide 40 mg daily as well as metolazone. She has had no discharges of her AICD that she knows of She was diagnosed with multiple myeloma in the last year and has been on Velcade infusions. Additionally she was diagnosed with worsening CKD and referred to nephrology for presumptive CKD stage IV. WBC 8, Hb 9.2, platelets 164, NA 138, K3.5, CL 100, HCO3 30, BUN 94, CR 3.2, glucose 294, calcium 8.8, phosphorus 3.8, magnesium 1.8, bilirubin 0.5, AST 20, ALT 27, alkaline phosphatase 90, high-sensitivity troponin is 34, NT proBNP is 2191, albumin 3.3, rapid COVID-19 negative, urinalysis with small blood otherwise bland, INR 1.1, PTT 23, D-dimer 1.89. EKG sinus rate 89 bpm QTC 476 otherwise normal axis and intervals. Transferred to [facility] for further evaluation. 08/31: Positive orthostatics initially. Started on midodrine. CR 2.7, BUN 82. She feels better but has been up out of bed yet today. Awaiting [place] device interrogation to rule out VT as cause. Negative carotid Dopplers. 09/01: BUN 75 creatinine 2.6 still minimally orthostatic today but able to take her cardiac medications in addition to midodrine 3 times daily. Feels symptomatically better. We will repeat therapy evaluation likely will need home health 09/02 Evaluated examined at bedside. Symptomatically doing better improved. Discharged home health today. Coreg decreased per cardiology. Hold hydralazine until follow-up. Greater than 30 minutes spent on discharge. 16 minutes advance care planning. Disposition: Disposition/Orders: D/C to Home w/ HH Activity: Activity: Resume previous activity Medications: Home Meds Active Scripts Carvedilol (CARVEDILOL ) 3.125 Mg Tablet, 3.125 MG PO BIDWMEALS for htn for 30 Days, #60 TAB Prov:GUDELIA GEORGE MD 09/02/21 Midodrine Hcl (MIDODRINE HCL) 5 Mg Tablet, 5 MG PO BIDAC for Orthostasis for 30 Days, #90 TAB 3 Refills Prov:GUDELIA EMERSON MD 09/01/21 Reported Medications Insulin Aspart (NOVOLOG) 100 Unit/1 Ml Cartridge, 100 UNIT SQ TID for sliding scale, EACH 08/30/21 Insulin Detemir (LEVEMIR) 100 Unit/1 Ml Vial, 25 UNIT SQ HS for diabetes, EACH 08/30/21 Isosorbide Mononitrate (ISOSORBIDE MONONITRATE ER) 30 Mg Tab.er.24h, 1 TAB PO DAILY for blood pressure, #30 TAB 5 Refills 08/30/21 Clopidogrel Bisulfate (CLOPIDOGREL) 75 Mg Tablet, 1 TAB PO DAILY for thinner, #90 TAB 1 Refill 08/30/21 Dicyclomine Hcl (DICYCLOMINE HCL) 10 Mg Capsule, 1 CAP PO DAILY for , #90 CAP 11 Refills 08/30/21 Cyanocobalamin (Vitamin B-12) (Vitamin B12) 5,000 Mcg Tab.rapdis, 1000 MCG PO DAILY for vitamin, TAB 08/30/21 Trazodone Hcl (TRAZODONE HCL) 50 Mg Tablet, 50 MG PO HS for health, TAB 08/30/21 Cholecalciferol (Vitamin D3) (Vitamin D3) 25 Mcg Capsule, 25 MCG PO DAILY for supplement, CAP 08/30/21 Cetirizine Hcl (ZYRTEC) 10 Mg Tablet, 1 TAB PO DAILY for allergies, #30 TAB 2 Refills 08/30/21 Ferrous Sulfate (Slow Fe) 142 Mg Tablet.er, 65 MG PO DAILY for supplement, TAB.SR 08/30/21 Rosuvastatin Calcium (CRESTOR) 40 Mg Tablet, 0.5 TAB PO DAILY for cholesterol, #30 TAB 5 Refills 08/30/21 Acyclovir (ACYCLOVIR) 400 Mg Tablet, 1 TAB PO BID for antiviral, #60 TAB 3 Refills 08/30/21 Fluoxetine Hcl (FLUOXETINE HCL) 20 Mg Capsule, 1 CAP PO DAILY for depression, #90 CAP 1 Refill 08/30/21 Discontinued Reported Medications Hydralazine Hcl (HYDRALAZINE HCL) 50 Mg Tablet, 1 TAB PO TID for htn, #90 TAB 5 Refills 08/30/21 Discontinued Scripts Carvedilol (CARVEDILOL) 25 Mg Tablet, 12.5 MG PO BIDWMEALS for CARDIAC for 30 Days, #30 TAB Prov:GUDELIA EMERSON MD 09/01/21 Scheduled Acyclovir (Acyclovir), 1 TAB PO BID, (Reported) Carvedilol (Carvedilol ), 3.125 MG PO BIDWMEALS Cetirizine Hcl (Zyrtec), 1 TAB PO DAILY, (Reported) Cholecalciferol (Vitamin D3) (Vitamin D3), 25 MCG PO DAILY, (Reported) Clopidogrel Bisulfate (Clopidogrel), 1 TAB PO DAILY, (Reported) Cyanocobalamin (Vitamin B-12) (Vitamin B12), 1,000 MCG PO DAILY, (Reported) Dicyclomine Hcl (Dicyclomine Hcl), 1 CAP PO DAILY, (Reported) Ferrous Sulfate (Slow Fe), 65 MG PO DAILY, (Reported) Fluoxetine Hcl (Fluoxetine Hcl), 1 CAP PO DAILY, (Reported) Insulin Aspart (Novolog), 100 UNIT SQ TID, (Reported) Insulin Detemir (Levemir), 25 UNIT SQ HS, (Reported) Isosorbide Mononitrate (Isosorbide Mononitrate Er), 1 TAB PO DAILY, (Reported) Midodrine Hcl (Midodrine Hcl), 5 MG PO BIDAC Rosuvastatin Calcium (Crestor), 0.5 TAB PO DAILY, (Reported) Trazodone Hcl (Trazodone Hcl), 50 MG PO HS, (Reported) Discontinued Medications Carvedilol (Carvedilol), 12.5 MG PO BIDWMEALS Hydralazine Hcl (Hydralazine Hcl), 1 TAB PO TID, (Reported) Justicifation of Admission Dx: Justifications for Admission: Justification of Admission Dx: N/A GUDELIA GEORGE MD Sep 02, 2021 12:28
--- NOTE | 2021-09-02 14:21 | NUR ---
[facility] following. Discussed with RN, discharge order for pt to return home with [employer]. Pt already has [employer] but cannot remember the name of the company. Pt provided phone number for zoya Felipe (from the [employer]) ph: [phone], [facility] left voicemail, awaiting return call. RN aware. [facility] will continue to follow. Addendum: 09/02/21 at 1542 by AYAAN CHAVARRIA [facility] decided to phone [facility] where pt had the [employer] arranged to determine if they could provide company name. Pt was set up with [employer]. [facility] verified with [employer] - clinicals and orders faxed. RN notified. Pt can discharge home when ride arranged.
[2021-09-02 15:00] VITALS: BP 94/52
[2021-09-02] MEDS ORDERED: CARVEDILOL 3.125 MG TABLET. PO SCH (17:00)
--- NOTE | 2021-09-02 18:50 | NUR ---
patient discharged to home with home health. pt was picked up by her son and taken out by wheelchair.
== END 2021-09-02 17:30 | disposition home health service (06) | DRG 312 ==
LOC: 5 SOUTH 05:40
PROVIDERS: ADMIT Internal Medicine; ATTEND Internal Medicine
DX: I95.1 Orthostatic hypotension (principal); N17.0 Acute kidney failure with tubular necrosis; I13.0 Hypertensive heart and chronic kidney disease with heart failure and stage 1 through stage 4 chronic kidney disease, or unspecified chronic kidney disease; C90.00 Multiple myeloma not having achieved remission; I50.22 Chronic systolic (congestive) heart failure; N18.4 Chronic kidney disease, stage 4 (severe); I42.9 Cardiomyopathy, unspecified; D64.9 Anemia, unspecified; E11.22 Type 2 diabetes mellitus with diabetic chronic kidney disease; E78.5 Hyperlipidemia, unspecified; G47.33 Obstructive sleep apnea (adult) (pediatric); I25.10 Atherosclerotic heart disease of native coronary artery without angina pectoris; I27.21 Secondary pulmonary arterial hypertension; I67.2 Cerebral atherosclerosis; J44.9 Chronic obstructive pulmonary disease, unspecified; M47.812 Spondylosis without myelopathy or radiculopathy, cervical region; Z20.822 Contact with and (suspected) exposure to COVID-19; Z79.899 Other long term (current) drug therapy; Z82.49 Family history of ischemic heart disease and other diseases of the circulatory system; Z83.3 Family history of diabetes mellitus; Z85.42 Personal history of malignant neoplasm of other parts of uterus; Z86.73 Personal history of transient ischemic attack (TIA), and cerebral infarction without residual deficits; Z95.1 Presence of aortocoronary bypass graft; Z95.810 Presence of automatic (implantable) cardiac defibrillator; F32.A Depression, unspecified
CPT/HCPCS: 36415; 78582; 80053; 80069; 82533; 82962; 84443; 85025; 93880; 96374; A9540; A9558; J1644; J1815; 97535-GO; G0378